=== PATIENT | female | born 1965 | race Caucasian/White ===

== ENCOUNTER 2020-02-17 20:00 | Outpatient (CLI) | payer OTHER, SELFPAY | END 2020-02-17 20:01 | disposition home or self-care (01) | LOC: SLEEP 02-18 08:32 | PROVIDERS: Family Provider Family Medicine; PCP Nurse Practitioner Family; Visit Provider Family Medicine | DX: G47.33 Obstructive sleep apnea (adult) (pediatric) (principal) | CPT/HCPCS: 95810 ==

== ENCOUNTER 2020-03-17 14:21 | Outpatient (CLI) | payer OTHER, SELFPAY ==
--- NOTE | 2020-03-17 14:40 | XR_ITS ---
WS: [id number] SCREENING DEXA SCAN [employer] CLINICAL INFORMATION: POST MENOPAUSAL COMPARISON: None. FINDINGS: The L1-L4 bone mineral density measures 1.160 g/cm2. This corresponds to a T score score of -0.2 and Z score of -0.7. Left femoral neck bone mineral density measures 1.122 g/cm2. This corresponds to a T score of 0.9 and Z score of 0.6. Right femoral neck bone mineral density measures 1.090 g/cm2. This corresponds to a T score 0.6of and Z score of 0.4. Mean femoral neck bone mineral density measures 1.106 g/cm2. This corresponds to a T score of 0.8 and Z score of 0.5. XR/XR DEXA axial skeleton* [id number] IMPRESSION: Normal bone mineralization. Patient's FRAX calculated 10 year probability for major osteoporotic fracture i s 5.1 % and osteoporotic hip fracture is 0.4%.
--- NOTE | 2020-03-17 15:10 | MM_ITS ---
WS: [id number] SCREENING DIGITAL MAMMOGRAM WITH CAD HISTORY: SCREEN COMPARISON: 01/13/2015 and 12/30/2014 Bilateral CC and MLO views submitted. Computer aided detection analyzed. Breast composition: There are scattered areas of fibroglandular density. No suspicious masses, microc alcifications or architectural distortion. MM/[place] [id number] IMPRESSION: BI-RADS: 1-Negative FOLLOW UP: 1 Year Follow-up
== END 2020-03-17 14:22 | disposition home or self-care (01) ==
PROVIDERS: PCP Nurse Practitioner Family; Visit Provider Nurse Practitioner Family
DX: Z78.0 Asymptomatic menopausal state (principal); Z12.31 Encounter for screening mammogram for malignant neoplasm of breast
CPT/HCPCS: 77067; 77080

== ENCOUNTER 2020-03-29 20:00 | Outpatient (CLI) | payer OTHER, SELFPAY | END 2020-03-29 20:01 | disposition home or self-care (01) | LOC: SLEEP 03-30 09:08 | PROVIDERS: PCP Nurse Practitioner Family; Visit Provider Nurse Practitioner Family | DX: G47.33 Obstructive sleep apnea (adult) (pediatric) (principal) | CPT/HCPCS: 95811 ==

== ENCOUNTER 2020-06-10 12:48 | Outpatient (CLI) | payer OTHER, SELFPAY ==
--- NOTE | 2020-06-10 12:58 | USCV_ITS ---
Maura Arana Age: 55 Gender: F : 1965 Exam Date: 06/10/2020 13:07 Ordering Phys: Merissa Foster CALCINER OPERATOR Technologist: Dunia Phan [place] [facility] [place]: PAIN IN LT KNEE TO LT HIP HISTORY: Two weeks of severe pain from lt hip to lt knee. PROCEDURES: Venous duplex imaging was performed in only the left lower extremity. The following venous structures were evaluated: common femoral vein, profunda vein, proximal portion of the greater saphenous vein, superficial femoral vein, and the popliteal vein. In addition, the posterior tibial and peroneal trunk were evaluated. Serial compression, augmentation maneuvers, and spectral Doppler flow evaluation were performed. FINDINGS: Normal 2-D Doppler and augmentation and compressibility throughout the lower extremity venous structures. Additional imaging through the proximal calf veins also reveals no thrombus. Limited evaluation of the greater saphenous vein is patent with no thrombus.. CONCLUSIONS No DVT left lower extremity. Dr. Lisette Gross DO (Electronically Signed) Final Date: 10 June 2020 14:38 S
== END 2020-06-10 12:49 | disposition home or self-care (01) ==
LOC: RAD 12:57
PROVIDERS: PCP Nurse Practitioner Family; Visit Provider Nurse Practitioner Family
DX: M79.605 Pain in left leg (principal)
CPT/HCPCS: 93971

== ENCOUNTER 2020-08-03 14:55 | Outpatient (CLI) | payer OTHER, SELFPAY ==
--- NOTE | 2020-08-03 14:58 | MR_ITS ---
WS: [id number] MRI LEFT KNEE HISTORY: LEFT KNEE JOINT PAIN COMPARISON: Knee radiograph 07/12/2020 Anterior cruciate ligament: Intact. Posterior cruciate ligament: Intact. Medial collateral ligament: Intact. Posterior lateral corner structures: Intact. Medial menisci: Intact. Normal signal, size and shape. Lateral meniscus: Intact. Normal signal, size and shape. Extensor mechanism: Distal quadriceps tendon and patellar tendons are intact. Fluid and soft tissue: Very small amount of fluid in the suprapatellar joint bursa. No Sarah's cyst. Osseous and articular structures: Patellofemoral compartment: Normal. Medial compartment: Mild narrowing of the medial compartment. Small fissures in the cartilage but no full-thickness defects. No marrow edema. Lateral compartment: Very mild narrowing of the joint without marrow edema. There is a full-thickness cartilage defect in the posterior lateral femoral condyle cartilage. Defect measures 6.7 mm. MR/MR knee LT wo con* [id number] IMPRESSION: 1. No meniscal tear. 2. Very small suprapatellar joint effusion. 3. 6.7 mm cartilage defect in the posterior lateral femoral condyle. 4. Very mild narrowing of the medial compartment with fissuring of the cartila ge.
== END 2020-08-03 14:56 | disposition home or self-care (01) ==
LOC: RADSHAW 14:57
PROVIDERS: PCP Nurse Practitioner Family; Visit Provider Nurse Practitioner Family
DX: M25.462 Effusion, left knee (principal)
CPT/HCPCS: 73721

== ENCOUNTER 2022-04-27 08:57 | Outpatient (CLI) | payer OTHER, SELFPAY ==
--- NOTE | 2022-04-27 | CT_ITS ---
WS: [id number] CT NECK TECHNIQUE: Contrast-enhanced CT of the neck with coronal and sagittal reformatted images. CLINICAL INFORMATION: ENLARGED LYMPH NODES COMPARISON: Ultrasound January 17, 2022 DLP: 310.[address] scans at [facility] use at least one of these dose optimization techniques: automated e xposure control; mA and/or kV adjustment per patient size (includes targeted exams where dose is matc hed to clinical indication); or iterative reconstruction. FINDINGS: Palpable marker in the RIGHT lower neck. No evidence of underlying mass or lesion. Previously describ ed suspected lymph node not visualized today. Tiny amount of underlying induration in this area. A fe w prominent cervical lymph nodes not pathologically enlarged. Slightly enlarged partially visualized subpectoral and upper axillary lymph nodes. Parotid glands are normal. Normal submandibular glands. Tonsillar calcifications. Normal parapharynge al fat. No cervical lymphadenopathy. Lung apices are well aerated. Paranasal sinuses are well aerated . Mild mucosal thickening RIGHT mastoid air cells. LEFT mastoid air cells well aerated. Normal senior billing consultant ior nasopharynx. Normal parapharyngeal fat. No evidence of supraglottic or glottic mass. Normal subgl ottic larynx. Straightening of the normal cervical lordosis with moderate spondylitic changes. CT/CT neck w con* [id number] IMPRESSION: 1. Palpable marker in the RIGHT lower neck. No evidence of underlying subcutan eous cystic or solid mass or lymph node. Tiny amount of induration in this area . No underlying lymph node in this area. 2. Partially visualized numerous prominent lymph nodes sub pectoral and upper axillary. Partially evaluated enlarged LEFT subpectoral lymph node measuring 16 mm. This could be further evaluated with contrast-enhanced chest CT. 3. A few prominent cervical lymph nodes not pathologically enlarged. 4. Normal salivary glands. 5. No evidence of supraglottic or glottic mass. 6. Mucosal thickening RIGHT mastoid air cells. 7. No other suspicious findings.
[2022-04-27] MEDS: iohexol 350 mg/mL 100 mL Btl IV (09:49)
== END 2022-04-27 08:58 | disposition home or self-care (01) ==
LOC: RAD 08:57
PROVIDERS: PCP Nurse Practitioner Family; Visit Provider Nurse Practitioner Family
DX: R59.0 Localized enlarged lymph nodes (principal)
CPT/HCPCS: 70491

== ENCOUNTER 2022-07-10 14:51 | Outpatient (CLI) | payer OTHER, SELFPAY ==
--- NOTE | 2022-07-10 15:18 | CT_ITS ---
WS: [id number] CT CHEST WITH INTRAVENOUS CONTRAST HISTORY: GENERALIZED ENLARGED LYMPH NODES TECHNIQUE: Contiguous 5 mm axial imaging performed on the thorax. Coronal and sagittal reformats are submitted. All CT scans at [facility] use at least one of these dose optimization techniques: automated exposure control; mA and/or kV adjustment per patient size (includes targeted exams where dose is matched to clinical indication); or iterative reconstruction. CONTRAST: Omnipaque 350; 95 mL IV. DLP: 639.01 mGy.cm COMPARISON: Prior ultrasound 01/17/2022. Neck CT 04/27/2022 Lungs and central airway: Normal. Pleura: Normal. No pleural effusion. Heart and pericardium: Mild cardiomegaly. No effusion. Mediastinum and costa: Small benign-appearing axillary, mediastinal and hilar lymph nodes. Normal fatt y costa remain. Vessels: Mild atherosclerosis aorta. Normal size pulmonary artery. Chest wall and lower neck: No soft tissue masses. Upper abdomen: Nonobstructing 11 mm RIGHT renal calcification. No adrenal mass. The visualized liver is negative. Osseous structures: Mild diffuse thoracic spondylitic changes. No bone destruction. CT/CT chest w con* [id number] IMPRESSION: 1. No axillary, mediastinal or hilar pathologically enlarged lymph nodes. 2. No pulmonary mass or nodule. 3. Mild atherosclerosis aorta. 4. Mild cardiomegaly.
[2022-07-10] MEDS: iohexol 350 mg/mL 500 mL Btl (per mL) IV (15:38)
== END 2022-07-10 14:52 | disposition home or self-care (01) ==
LOC: RAD 14:53
PROVIDERS: PCP Nurse Practitioner Family; Visit Provider Nurse Practitioner Family
DX: R59.1 Generalized enlarged lymph nodes (principal); I70.0 Atherosclerosis of aorta; I51.7 Cardiomegaly
CPT/HCPCS: 71260; Q9967

== ENCOUNTER 2022-11-18 17:03 | Emergency (ER) | payer OTHER, SELFPAY ==
[2022-11-18] VITALS (7 sets, daily range): BP systolic 120–173; BP diastolic 59–89; PULSE 63–78; RESP 18–21; TEMP 36.9; O2SAT 93–98; BMI 51.5
--- NOTE | 2022-11-18 17:18 | ED_ITS ---
HPI - Abdominal Pain General: Chief Complaint: Abdominal Pain Stated Complaint: sharp pain under left breast upon movement Time Seen by Provider: 11/18/22 17:18 History of Present Illness: Patient presents to the ER with complaints of left upper quadrant abdominal pain. This pain started in the middle of last night. Patient has had an episode of this before approximately 2 years ago. MD elicited complaint: abdominal pain Pertinent past history: none Onset (ago): day(s) (Last night) Pain Consistency: constant Location: LUQ Severity: severe Quality: stabbing Radiation: none Migration to: no migration Exacerbating factors: movement Relieving factors: rest Associated Symptoms: Reports no associated symptoms; Denies chills, diarrhea, dysuria, fever(s), nausea and vomiting Review of Systems General: Reports: 10 or more systems reviewed and unremarkable except in HPI and below Const: Denies: fever(s), chills or body aches Eyes: Denies: change in vision or photophobia ENMT: Denies: throat pain or odynophagia Card: Denies: chest pain, palpitations or irregular heart rhythm Resp: Denies: dyspnea, productive cough or non-productive cough GI: Reports: abdominal pain; Denies: nausea, vomiting or diarrhea : Denies: flank pain, difficulty voiding or dysuria Musc: Denies: neck pain, back pain or extremity pain Skin/Breast: Denies: rash, pruritus or erythema PFSH ED PFSH: Social History Smoking and tobacco status: never smoked Alcohol intake: never Substance/Drug Use: never Physical Exam Const: COMMON NORMALS: no acute distress, average body habitus, patient oriented x3, no limitations, healthy appearing, alert and well nourished HENMT: COMMON NORMALS: normocephalic, atraumatic, hearing grossly normal bilaterally, external ears normal, Normal external nose present and moist oral mucous membranes HEAD & SCALP: normocephalic and atraumatic NOSE: Normal external nose present EXTERNAL EAR: Yes external ears normal Eye: COMMON NORMALS: Equal, round and reactive pupils present, EOMs intact bilaterally, conjunctivae normal and no scleral icterus CONJUNCTIVA: Yes conjunctivae normal PUPIL: Yes Equal, round and reactive pupils present Neck/C-Spine: COMMON NORMALS: full ROM, no lymphadenopathy, supple, no meningeal signs, no JVD and Thyroid normal THYROID: Thyroid normal Lymph: LYMPHATIC: no lymphadenopathy noted Chest: COMMONS NORMALS: normal inspection of the chest and normal palpation of entire chest wall Resp: COMMON NORMALS: normal respiratory effort, No retractions, No use of accessory muscles and clear to auscultation bilaterally AUSCULTATION: clear to auscultation bilaterally Cardio: COMMON NORMALS: no JVD, regular rate, regular rhythm, S2 normal heart sound present, No gallops present (Cardio), No clicks present (Cardio) and No murmurs present (Cardio) RATE: regular rate RHYTHM: regular rhythm HEART SOUNDS: S2 normal heart sound present GI: COMMON NORMALS: Normal to inspection, nondistended, normoactive bowel sounds present, Soft to palpation, No hepatosplenomegaly present and no masses PALPATION: Yes Soft to palpation, Yes Tenderness to palpation present (GI) Details: LUQ and Yes No hepatosplenomegaly present : COMMON NORMALS: Yes no CVA tenderness BLADDER/KIDNEY EXAM: Yes no CVA tenderness Back/Pelvis: COMMON NORMALS: no CVA tenderness Neuro: COMMON NORMALS: patient oriented x3 SENSORIUM/ORIENTATION: Yes alert MENINGEAL SIGNS: Yes no meningeal signs Course Vital Signs: Vital signs: Vital Signs Temperature 98.4 F 11/18/22 17:10 Pulse Rate 66 11/18/22 19:00 Respiratory Rate 19 H 11/18/22 19:00 Blood Pressure 173/89 11/18/22 18:30 Pulse Oximetry 93 11/18/22 19:00 Oxygen Delivery Me thod Room Air 11/18/22 18:16 MDM - Abdominal Pain Medical Decision Making Patient presents to the ER with left upper quadrant abdominal pain since last night. Patient states his pain is sharp stabbing and constant. Physical exam was performed lab work and imaging was reviewed which showed jejunal bowel wall thickening consistent with jejunitis. Patient was given Cipro and Flagyl here in the ER as her initial dose and will be sent home with prescriptions for both. Patient is to follow-up with her PCP in approximately 7 to 10 days. Differential Diagnosis Likely abdominal pain; Unlikely acute appendicitis, calculus of kidney, constipation, diverticulitis, endometriosis, gastroenteritis, pancreatitis or small bowel obstruction Medical Records I reviewed the patient's medical records. Lab Data I reviewed the patient's lab results. 11/18/22 17:34 11/18/22 17:34 Labs/Radiology: Radiology Impressions Abdomen/Pelvis CT 11/18/22 17:25 IMPRESSION: Jejunal bowel wall thickening consistent with jejunitis. Laboratory Results WBC 8.1 10^3/uL (4.0-10.0) 11/18/22 17:34 RBC 5.09 10^6/uL (4.1-5.3) 11/18/22 17:34 Hgb 14.1 g/dL (11.5-15.3) 11/18/22 17:34 Hct 43.0 % (37.0-47.0) 11/18/22 17:34 MCV 84.5 fl (81-99) 11/18/22 17:34 MCH 27.7 pg (28.0-34.0) L 11/18/22 17:34 MCHC 32.8 g/dL (30.0-36.0) 11/18/22 17:34 RDW 13.2 % (12.1-15.1) 11/18/22 17:34 Plt Count 329 10^3/cmm (130-400) 11/18/22 17:34 MPV 9.8 fL (7.4-10.4) 11/18/22 17:34 Neut % (Auto) 63.1 % 11/18/22 17:34 Lymph % (Auto) 22.5 % 11/18/22 17:34 Wilkinson % (Auto) 6.8 % 11/18/22 17:34 Eos % (Auto) 6.3 % 11/18/22 17:34 Baso % (Auto) 0.6 % 11/18/22 17:34 Neut # (Auto) 5.10 10^3/uL (1.8-7.7) 11/18/22 17:34 Lymph # (Auto) 1.8 10^3/uL (0.8-4.8) 11/18/22 17:34 Wilkinson # (Auto) 0.6 10^3/uL (0.2-0.9) 11/18/22 17:34 Eos # (Auto) 0.5 10^3/uL (0.0-0.8) 11/18/22 17:34 Baso # (Auto) 0.1 10^3/uL (0.0-0.1) 11/18/22 17:34 Nucleated RBC % (auto) 0 % 11/18/22 17:34 Nucleated RBCs # 0.0 /100WBC 11/18/22 17:34 Sodium 140 mmol/L (136-145) 11/18/22 17:34 Potassium 3.5 mmol/L (3.5-5.1) 11/18/22 17:34 Chloride 98 mmol/L (98-107) 11/18/22 17:34 Carbon Dioxide 30 mmol/L (22-29) H 11/18/22 17:34 Anion Gap 15.5 (5-19) 11/18/22 17:34 BUN 9 mg/dL (6-20) 11/18/22 17:34 Creatinine 0.4 mg/dL (0.5-0.9) L 11/18/22 17:34 GFR Calculation 165.7 mL/min (90-130) H 11/18/22 17:34 Glucose 180 mg/dL (65-115) H 11/18/22 17:34 Calculated Osmolality 293 mOsm/kg (285-295) 11/18/22 17:34 Calcium 9.0 mg/dL (8.5-10.5) 11/18/22 17:34 Total Bilirubin 0.7 mg/dL (0.15-1.2) 11/18/22 17:34 AST 28 U/L (0-32) 11/18/22 17:34 ALT 39 U/L (0-33) H 11/18/22 17:34 Alkaline Phosphatase 104 U/L (35-105) 11/18/22 17:34 Total Protein 7.7 g/dL (6.6-8.7) 11/18/22 17:34 Albumin 4.3 g/dL (3.5-5.2) 11/18/22 17:34 Globulin 3.4 g/dL (1.3-4.6) 11/18/22 17:34 Lipase 26 U/L (13-60) 11/18/22 17:34 Urine Color Yellow (Yellow) 11/18/22 18:38 Urine Appearance Clear (CLEAR) 11/18/22 18:38 Urine pH 5 (5-7) 11/18/22 18:38 Ur Specific [place] 1.015 (1.005-1.030) 11/18/22 18:38 Urine Protein Neg (Negative) 11/18/22 18:38 Urine Glucose (UA) Norm (Normal) 11/18/22 18:38 Urine Ketones Negative (Negative) 11/18/22 18:38 Urine Blood Neg (Negative) 11/18/22 18:38 Urine Nitrate Negative (Negative) 11/18/22 18:38 Urine Bilirubin Neg (Negative) 11/18/22 18:38 Urine Urobilinogen Norm mg/dL (Negative) 11/18/22 18:38 Ur Leukocyte Esterase Negative (Negative) 11/18/22 18:38 Discharge Plan Discharge Patient Disposition: Home Clinical Impression: Jejunitis Abdominal pain Qualifiers: Abdominal location: left upper quadrant Qualified Code(s): R10.12 - Left upper quadrant pain Condition: Stable Prescriptions: New ciprofloxacin HCl 500 mg tablet 500 mg PO BID Qty: 20 0RF metronidazole 500 mg tablet 500 mg PO Q8H Qty: 30 0RF No Action amlodipine [Norvasc] 2.5 mg tablet 2.5 mg PO DAILY losartan-hydrochlorothiazide 100-25 mg tablet 1 tab PO DAILY metoprolol tartrate 25 mg tablet 25 mg PO DAILY levothyroxine 88 mcg capsule 88 mcg PO DAILY metformin 500 mg tablet 500 mg PO DAILY cholecalciferol (vitamin D3) 125 mcg (5,000 unit) capsule 125 mcg PO DAILY Discharge Orders: Discharge ED (Routine); Ordered 11/18/22 Ordered By: Fabio Simon Referrals: Merissa Foster FNP [Primary Care Provider] - 1 week Patient Instructions: Abdominal Pain (ED) Coding Level of Care Code ED Salesperson Burial Needs for Charles Mcneill
--- NOTE | 2022-11-18 17:25 | CTR_ITS ---
PROCEDURE INFORMATION: Exam: CT Abdomen And Pelvis With Contrast Exam date and time: 11/18/2022 5:53 PM Age: 57 years old Clinical indication: Abdominal pain; Localized; Left upper quadrant (luq); Prior surgery; Surgery date: 6+ months; Surgery type: Tubal; Additional info: Luq abd pain TECHNIQUE: Imaging protocol: Computed tomography of the abdomen and pelvis with contrast. Radiation optimization: All CT scans at this facility use at least one of these dose optimization techniques: automated exposure control; mA and/or kV adjustment per patient size (includes targeted exams where dose is matched to clinical indication); or iterative reconstruction. Contrast material: OMNI 350; Contrast volume: 100 ml; Contrast route: INTRAVENOUS (IV); REPORTING DATA: Count of CT and Cardiac NM exams in prior 12 months: This patient has received 2 known CTs and 0 known cardiac nuclear medicine studies in the 12 months prior to the current study. COMPARISON: CT chest w con* [id number] 07/10/2022 3:31 PM RADIATION DOSE METRICS: Total DLP (mGy-cm): 1111.6 FINDINGS: Liver: Normal. No mass. Gallbladder and bile ducts: Normal. No calcified stones. No ductal dilation. Pancreas: Normal. No ductal dilation. Spleen: Normal. No splenomegaly. Adrenal glands: Normal. No mass. Kidneys and ureters: Normal. No hydronephrosis. Stomach and bowel: Moderate diverticulosis. Jejunal bowel wall thickening consistent with jejunitis. Appendix: No evidence of appendicitis. Intraperitoneal space: Unremarkable. No free air. No significant fluid collection. Vasculature: Calcification of the abdominal aorta and/or iliac arteries consistent with atherosclerotic vessel disease. Lymph nodes: Unremarkable. No enlarged lymph nodes. Urinary bladder: Unremarkable as visualized. Reproductive: Unremarkable as visualized. Bones/joints: Unremarkable. No acute fracture. Soft tissues: Unremarkable. CT/CT abdomen pelvis w con* [id number] IMPRESSION: Jejunal bowel wall thickening consistent with jejunitis.
[2022-11-18 17:48] LABS: Basophils # 0.1 10^3/uL (0.0-0.1); Basophils % 0.6 %; Eosinophils # 0.5 10^3/uL (0.0-0.8); Eosinophils % 6.3 %; Hemoglobin 14.1 g/dL (11.5-15.3); Lymphocytes # 1.8 10^3/uL (0.8-4.8); Lymphocytes % 22.5 %; Mean Corpuscular HGB Conc 32.8 g/dL (30.0-36.0); Mean Corpuscular Hemoglobin 27.7 pg (28.0-34.0); Mean Corpuscular Volume 84.5 fl (81-99); Mean Platelet Volume 9.8 fL (7.4-10.4); Monocytes # 0.6 10^3/uL (0.2-0.9); Monocytes % 6.8 %; Neutrophils % 63.1 %; Nucleated Red Blood Cells % 0 %; Platelet Count 329 10^3/cmm (130-400); Red Blood Count 5.09 10^6/uL (4.1-5.3); Red Cell Distribution Width 13.2 % (12.1-15.1); White Blood Count 8.1 10^3/uL (4.0-10.0)
[2022-11-18] MEDS: iohexol 350 mg/mL 500 mL Btl (per mL) IV (17:58)
[2022-11-18 18:00] LABS: Alanine Aminotransferase 39 U/L (0-33); Albumin Level 4.3 g/dL (3.5-5.2); Alkaline Phosphatase 104 U/L (35-105); Anion Gap 15.5 (5-19); Aspartate Amino Transferase 28 U/L (0-32); Blood Urea Nitrogen 9 mg/dL (6-20); Carbon Dioxide 30 mmol/L (22-29); Chloride 98 mmol/L (98-107); Globulin 3.4 g/dL (1.3-4.6); Glomerular Filtration Rate 165.7 mL/min (90-130); Glucose 180 mg/dL (65-115); Lipase 26 U/L (13-60); Osmolality Calculated 293 mOsm/kg (285-295); Potassium 3.5 mmol/L (3.5-5.1); Sodium 140 mmol/L (136-145); Total Bilirubin 0.7 mg/dL (0.15-1.2); Total Protein 7.7 g/dL (6.6-8.7)
[2022-11-18] MEDS: ketorolac 30 mg/mL INJ IVP (18:10)
[2022-11-18 18:42] LABS: Add Urine Microscopic? NO; Charge for UA Resulting for Rev
[2022-11-18 19:00] LABS: Bilirubin Urine Neg (Negative); Blood Urine Neg (Negative); Glucose Urine UA Norm (Normal); Ketones Urine Negative (Negative); Leukocyte Esterase Urine Negative (Negative); Nitrate Urine Negative (Negative); Protein Urine Neg (Negative); Specific Gravity, Urine 1.015 (1.005-1.030); Urine Appearance Clear (CLEAR); Urine Color Yellow (Yellow); Urobilinogen Urine Norm (Negative); pH Urine 5 (5-7)
[2022-11-18] MEDS: ciprofloxacin 500 mg Tablet PO (19:43)
[2022-11-18] MEDS: metroNIDAZOLE 500 MG Tablet PO (19:43)
== END 2022-11-18 19:53 | disposition home or self-care (01) ==
PROVIDERS: Emergency Provider Emergency Medicine; PCP Nurse Practitioner Family
DX: K52.9 Noninfective gastroenteritis and colitis, unspecified (principal); R10.12 Left upper quadrant pain; Z79.84 Long term (current) use of oral hypoglycemic drugs
CPT/HCPCS: 74177; 80053; 81003; 83690; 85025; 96374; 99285; J1885; Q9967

== ENCOUNTER 2023-06-06 14:20 | Outpatient (CLI) | payer OTHER, SELFPAY ==
--- NOTE | 2023-06-06 14:26 | MM_ITS ---
WS: [id number] BILATERAL SCREENING DIGITAL TOMOSYNTHESIS MAMMOGRAM WITH CAD HISTORY: SCREENING COMPARISON: 03/17/2020 and 01/13/2015 Bilateral CC and MLO views with tomosynthesis and synthetic mammography submitted. Computer aided det ection analyzed. Breast composition: There are scattered areas of fibroglandular density. No suspicious masses, microc alcifications or architectural distortion. IMPRESSION: MM/[place] [id number] BI-RADS: 1-Negative FOLLOW UP: 1 Year Follow-up
== END 2023-06-06 14:21 | disposition home or self-care (01) ==
LOC: RAD 14:20
PROVIDERS: PCP Nurse Practitioner Family; Visit Provider Nurse Practitioner Family
DX: Z12.31 Encounter for screening mammogram for malignant neoplasm of breast (principal)
CPT/HCPCS: 77063; 77067

== ENCOUNTER 2023-07-21 19:16 | Emergency (ER) | payer OTHER, SELFPAY ==
[2023-07-21 19:20] VITALS: BP 174/81; PULSE 91; RESP 18; TEMP 36.7; O2SAT 99; BMI 48.6
--- NOTE | 2023-07-21 19:20 | W.ED.GENADLT ---
HPI - General Adult General: Chief complaint: Skin/Abscess/Foreign Body Stated complaint: full body rash bg over 500 Time Seen by Provider: 07/21/23 19:19 History of Present Illness: 58-year-old female comes in today for complaints of a rash that has been persistent for the last 2 to 3 weeks. Patient has been first treated with steroids and the rash seemed to worsen, patient then had an increase in the dose of steroids and started on cephalexin. Patient reports no improvement of symptoms and feels the rash is worsened even more. Associated symptoms: Reports rash Review of Systems Skin/Breast: Reports: rash PFSH ED PFSH: Social History Smoking and tobacco/nicotine status: never used tobacco/nicotine Alcohol intake: never Substance/Drug Use: never Physical Exam Const: COMMON NORMALS: alert HENMT: COMMON NORMALS: normocephalic HEAD & SCALP: normocephalic Neck/C-Spine: COMMON NORMALS: full ROM Resp: COMMON NORMALS: normal respiratory effort and clear to auscultation bilaterally AUSCULTATION: clear to auscultation bilaterally Cardio: COMMON NORMALS: regular rate and regular rhythm RATE: regular rate RHYTHM: regular rhythm GI: COMMON NORMALS: non-tender Extremity: COMMON NORMALS: normal to inspection Neuro: SENSORIUM/ORIENTATION: Yes alert Skin: NARRATIVE SKIN EXAM: Patient has crusting to the scalp running down the right facial area. RASHES: rashes noted (Confluent erythematous rash, crusted lesions to the hands and feet bilatera) Course Vital Signs: Vital signs: Vital Signs Temperature 98.0 F 07/21/23 21:10 Pulse Rate 74 07/21/23 21:10 Respiratory Rate 18 07/21/23 21:10 Blood Pressure 182/81 07/21/23 21:10 Pulse Oximetry 97 07/21/23 21:10 Oxygen Delivery Me thod Room Air 07/21/23 19:20 MDM - General Adult Medical Decision Making Patient presents with a rash that is worsening over the last 2 to 3 weeks. Patient was first started on steroids which seemed to make the rash worse followed up with primary care and they added cephalexin and then increase the dose of steroids. Since then patient has had increasing rash with erythema and crusting of the lesions. Differential diagnosis includes Bangladeshi scabies, adverse drug effect, allergic reaction. I believe the patient probably has Bangladeshi scabies. Recommend that she stop the steroids and we will treat her with ivermectin and permethrin cream. Patient does have an appointment to see dermatology tomorrow which she will go ahead and keep for further evaluation and consideration of differentials. Lab noted with a blood glucose of 342, normal anion gap, and potassium of 2.8. Patient was given 40 mill equivalents of potassium we continued on 10 mEq daily for the next 7 days. This was reviewed with patient and agreed to plan. Patient was also sent in a prescription for cough medicine due to complaints of a cough on discharge. Lab Data 07/21/23 20:17 07/21/23 20:17 Laboratory Results WBC 9.56 10^3/uL (3.29-11.43) 07/21/23 20:17 RBC 4.74 10^6/uL (3.85-5.65) 07/21/23 20:17 Hgb 13.40 g/dL (11.27-16.99) 07/21/23 20:17 Hct 39.6 % (36-47) 07/21/23 20:17 MCV 83.5 fl (85-98) L 07/21/23 20:17 MCH 28.3 pg (27-33) 07/21/23 20:17 MCHC 33.8 g/dL (30-55) 07/21/23 20:17 RDW 14.5 % (12.1-15.1) 07/21/23 20:17 Plt Count 407 10^3/cmm (157-399) H 07/21/23 20:17 MPV 9.4 fL (7.4-10.4) 07/21/23 20:17 Neut % (Auto) 72.2 % 07/21/23 20:17 Lymph % (Auto) 19.9 % 07/21/23 20:17 [place] % (Auto) 3.8 % 07/21/23 20:17 Eos % (Auto) 1.6 % 07/21/23 20:17 Baso % (Auto) 0.8 % 07/21/23 20:17 Neut # (Auto) 6.91 10^3/uL (1.8-7.7) 07/21/23 20:17 Lymph # (Auto) 1.9 10^3/uL (0.8-4.8) 07/21/23 20:17 [place] # (Auto) 0.4 10^3/uL (0.2-0.9) 07/21/23 20:17 Eos # (Auto) 0.2 10^3/uL (0.0-0.8) 07/21/23 20:17 Baso # (Auto) 0.1 10^3/uL (0.0-0.1) 07/21/23 20:17 Nucleated RBC % (auto) 0 % 07/21/23 20:17 Nucleated RBCs # 0.0 /100WBC 07/21/23 20:17 Sodium 140 mmol/L (136-145) 07/21/23 20:17 Potassium 2.8 mmol/L (3.5-5.1) L* 07/21/23 20:17 Chloride 96 mmol/L (98-107) L 07/21/23 20:17 Carbon Dioxide 30 mmol/L (22-29) H 07/21/23 20:17 Anion Gap 16.8 (5-19) 07/21/23 20:17 BUN 7 mg/dL (6-20) 07/21/23 20:17 Creatinine 0.6 mg/dL (0.5-0.9) 07/21/23 20:17 GFR Calculation 103.4 mL/min (90-130) 07/21/23 20:17 Glucose 342 mg/dL (65-115) H 07/21/23 20:17 POC Glucose 390 mg/dL (70-110) H 07/21/23 19:24 Calculated Osmolality 302 mOsm/kg (285-295) H 07/21/23 20:17 Calcium 8.1 mg/dL (8.5-10.5) L 07/21/23 20:17 Total Bilirubin 0.7 mg/dL (0.15-1.2) 07/21/23 20:17 AST 20 U/L (0-32) 07/21/23 20:17 ALT 26 U/L (0-33) 07/21/23 20:17 Alkaline Phosphatase 104 U/L (35-105) 07/21/23 20:17 Total Protein 7.3 g/dL (6.6-8.7) 07/21/23 20:17 Albumin 3.8 g/dL (3.5-5.2) 07/21/23 20:17 Globulin 3.5 g/dL (1.3-4.6) 07/21/23 20:17 Urine Color Light yellow (Yellow) 07/21/23 19:53 Urine Appearance Sl hazy (CLEAR) A 07/21/23 19:53 Urine pH 6.5 (5-7) 07/21/23 19:53 Ur Specific [place] 1.010 (1.005-1.030) 07/21/23 19:53 Urine Protein Neg (Negative) 07/21/23 19:53 Urine Glucose (UA) 4+ (Normal) H 07/21/23 19:53 Urine Ketones Negative (Negative) 07/21/23 19:53 Urine Blood Neg (Negative) 07/21/23 19:53 Urine Nitrate Negative (Negative) 07/21/23 19:53 Urine Bilirubin Neg (Negative) 07/21/23 19:53 Urine Urobilinogen 1 mg/dL (Negative) H 07/21/23 19:53 Ur Leukocyte Esterase Negative (Negative) 07/21/23 19:53 Urine RBC 0-4 /hpf (0-2) H 07/21/23 19:53 Urine WBC None /hpf (0-5) 07/21/23 19:53 Ur Squamous Epith Cells 0-4 /hpf (0-5) H 07/21/23 19:53 Amorphous Sediment Not Reportable 07/21/23 19:53 Urine Bacteria Trace /hpf (NONE) 07/21/23 19:53 Serum Ketones Negative (Negative) 07/21/23 20:17 No radiology studies performed this visit Discharge Plan Discharge Patient Disposition: Home Clinical Impression: Bangladeshi scabies, Hypokalemia Condition: Stable Prescriptions: New ivermectin 3 mg tablet 15 mg PO DAILY Qty: 25 0RF Rx Instructions: take on day 1,2,8,9 and 15 permethrin 5 % cream 1 applic topical Q14D Qty: 120 1RF Rx Instructions: apply second treatment after 7 days potassium chloride 10 mEq capsule, extended release 10 meq PO DAILY Qty: 7 0RF promethazine-DM 6.25-15 mg/5 mL syrup 5 ml PO Q6H PRN (Reason: cough) Qty: 118 0RF No Action amlodipine [Norvasc] 2.5 mg tablet 2.5 mg PO DAILY losartan-hydrochlorothiazide 100-25 mg tablet 1 tab PO DAILY metoprolol tartrate 25 mg tablet 25 mg PO DAILY levothyroxine 88 mcg capsule 88 mcg PO DAILY metformin 500 mg tablet 500 mg PO DAILY cholecalciferol (vitamin D3) 125 mcg (5,000 unit) capsule 125 mcg PO DAILY ciprofloxacin HCl 500 mg tablet 500 mg PO BID Qty: 20 0RF metronidazole 500 mg tablet 500 mg PO Q8H Qty: 30 0RF Discharge Orders: Discharge ED (Routine); Ordered 07/21/23 Ordered By: Tremayne Manjarrez Referrals: Merissa Foster FNP [Primary Care Provider] - Discharge Diet: Usual diet Discharge Activity: Increase activity as tolerated Patient Instructions: Scabies (ED) Activity Restrictions/Additional Instructions: Take ivermectin tablets, 5 tablets, on day 1 and 2, repeat on days 8 and 9, then on day 15. Take tablets with food. Use permethrin cream apply head to toe on day 1 and then repeat on day 7. Take potassium daily for the next 7 days to replace lost potassium from steroid use. Drink plenty of water and fluids. Stop steroids. You can use the antibiotic to rule out secondary infection. Stand Alone Forms: Work/School Release Coding Level of Care Code ED Wire Stitcher for Charles Mcneill
[2023-07-21 19:29] LABS: Glucose Point of Care 390 mg/dL (70-110)
[2023-07-21 19:42] VITALS: BP 174/87; PULSE 84; RESP 18; O2SAT 97
[2023-07-21 20:08] LABS: Protein Urine Neg (Negative); Urine Appearance SL Hazy (CLEAR); Urine Color Light yellow (Yellow); pH Urine 6.5 (5-7)
[2023-07-21 20:09] LABS: Add Urine Microscopic? YES; Bilirubin Urine Neg (Negative); Blood Urine Neg (Negative); Glucose Urine UA 4+ (Normal); Ketones Urine Negative (Negative); Leukocyte Esterase Urine Negative (Negative); Nitrate Urine Negative (Negative); Urobilinogen Urine 1 mg/dL (Negative)
[2023-07-21 20:15] LABS: Add Urine Culture? No; Bacteria Urine TRACE /hpf; RBC Urine 0-4 /hpf (0-2); Squamous Epithelial Cell Urine 0-4 /hpf (0-5)
[2023-07-21 20:28] LABS: Basophils # 0.1 10^3/uL (0.0-0.1); Basophils % 0.8 %; Eosinophils # 0.2 10^3/uL (0.0-0.8); Eosinophils % 1.6 %; Hematocrit 39.6 % (36-47); Lymphocytes # 1.9 10^3/uL (0.8-4.8); Lymphocytes % 19.9 %; Mean Corpuscular HGB Conc 33.8 g/dL (30-55); Mean Corpuscular Hemoglobin 28.3 pg (27-33); Mean Corpuscular Volume 83.5 fl (85-98); Mean Platelet Volume 9.4 fL (7.4-10.4); Monocytes # 0.4 10^3/uL (0.2-0.9); Monocytes % 3.8 %; Neutrophils # 6.91 10^3/uL (1.8-7.7); Neutrophils % 72.2 %; Nucleated Red Blood Cells % 0 %; Platelet Count 407 10^3/cmm (157-399); Red Blood Count 4.74 10^6/uL (3.85-5.65); Red Cell Distribution Width 14.5 % (12.1-15.1); White Blood Count 9.56 10^3/uL (3.29-11.43)
[2023-07-21 20:36] VITALS: BP 182/81; PULSE 74; RESP 18; O2SAT 97
[2023-07-21 20:40] LABS: Ketone (Acetest) Serum Negative (Negative)
[2023-07-21 20:46] LABS: Alanine Aminotransferase 26 U/L (0-33); Albumin Level 3.8 g/dL (3.5-5.2); Alkaline Phosphatase 104 U/L (35-105); Anion Gap 16.8 (5-19); Aspartate Amino Transferase 20 U/L (0-32); Blood Urea Nitrogen 7 mg/dL (6-20); Calcium 8.1 mg/dL (8.5-10.5); Carbon Dioxide 30 mmol/L (22-29); Chloride 96 mmol/L (98-107); Globulin 3.5 g/dL (1.3-4.6); Glomerular Filtration Rate 103.4 mL/min (90-130); Glucose 342 mg/dL (65-115); Osmolality Calculated 302 mOsm/kg (285-295); Sodium 140 mmol/L (136-145); Total Bilirubin 0.7 mg/dL (0.15-1.2); Total Protein 7.3 g/dL (6.6-8.7)
[2023-07-21 20:50] LABS: Potassium 2.8 mmol/L (3.5-5.1)
[2023-07-21] MEDS: potassium chloride ER 20 mEq Tablet 40 MEQ PO (21:00)
[2023-07-21 21:10] VITALS: BP 182/81; PULSE 74; RESP 18; TEMP 36.7; O2SAT 97
== END 2023-07-21 21:11 | disposition home or self-care (01) ==
PROVIDERS: Emergency Provider Nurse Practitioner Family; PCP Nurse Practitioner Family
DX: B86 Scabies (principal); E87.6 Hypokalemia; Z79.84 Long term (current) use of oral hypoglycemic drugs
CPT/HCPCS: 36415; 36416; 80053; 81001; 82009; 82962; 85025; 99283

== ENCOUNTER 2023-07-24 11:36 | Emergency (ER) | payer OTHER, SELFPAY ==
[2023-07-24] VITALS (8 sets, daily range): BP systolic 123; BP diastolic 76–92; PULSE 86–97; RESP 16–23; TEMP 36.7; O2SAT 94–100; BMI 48.6
--- NOTE | 2023-07-24 13:13 | ED_ITS ---
HPI - General Adult 2 General: Chief complaint: General Medical Stated complaint: dr. barrett, fever, rash, cough Time Seen by Provider: 07/24/23 13:12 History of Present Illness: 58-year-old female comes in today with i ncreased cough and chest congestion. Patient was seen the other day for a rash which was erythematous and areas of crusting to the wrist hands and face. Patient at that time was diagnosed with Burmese scabies. Since being taken off the steroids patient was continued on cephalexin. Since then patient's cough worsened and the patient was to see dermatology as but was referred to the ER instead due to the increased coughing. Patient has a history of COPD and diabetes mellitus type 2. Patient reports that she used the permethrin lotion x 1 that has yet to take in the ivermectin. Patient did stop steroids and continue the cephalexin. Review of Systems 2 General: Reports: 10 or more systems reviewed and unremarkable except in HPI and below Skin/Breast: Reports: pruritus and erythema PFSH ED 2 PFSH: Social History Smoking and tobacco/nicotine status: never used tobacco/nicotine Alcohol intake: never Substance/Drug Use: never Physical Exam 2 Const: COMMON NORMALS: alert HENMT: MOUTH: Normal oral and palatal mucosa present Neck/C-Spine: COMMON NORMALS: full ROM Resp: COMMON NORMALS: normal respiratory effort and clear to auscultation bilaterally AUSCULTATION: clear to auscultation bilaterally Cardio: COMMON NORMALS: regular rate and regular rhythm RATE: regular rate RHYTHM: regular rhythm GI: COMMON NORMALS: Soft to palpation PALPATION: Yes Soft to palpation Extremity: COMMON NORMALS: normal to inspection Neuro: SENSORIUM/ORIENTATION: Yes alert Skin: NARRATIVE SKIN EXAM: Confluent erythematous rash. Patient has crusting to the right side of the face and right hand. Some improvement of the crusting is noted from prior exam at last ER visit. Patient has more abrasions to her skin from scratching. Course 2 Vital Signs: Vital signs: Vital Signs Temperature 98.0 F 07/24/23 11:42 Pulse Rate 86 07/24/23 14:38 Respiratory Rate 23 H 07/24/23 14:38 Blood Pressure 123/92 07/24/23 14:38 Pulse Oximetry 95 07/24/23 14:38 Oxygen Delivery Me thod Room Air 07/24/23 14:38 MDM - General Adult Medical Decision Making 58-year-old female comes in today with increased cough and congestion. Patient was recently seen in the emergency department and diagnosed with Burmese scabies. Patient at that time had her steroids stopped and was continued on some cephalexin. Today the rash appears erythematous but some of the crusting has improved since a dose of permethrin has been used. Lungs are increased wheezing throughout with decreased air movement. Patient has COPD and diabetes mellitus. Vital signs are stable. Differential diagnosis includes allergic reaction, exacerbation of COPD, viral syndrome, pneumonia. Chest x-ray showed no pneumonia. Laboratory values showed increase in white blood cell count, CRP was elevated at 122, sed rate was normal. Potassium was low at 2.9. Blood glucose was 228. White blood cell count was 14.3. Chest x-ray was normal. Patient was medicated with albuterol and a DuoNeb treatment with improvement in air movement. Patient was given 0.3 of epi with no significant improvement in wheezing or rash. Patient was given Benadryl to help with itching. Patient was given 125 mg of methylprednisolone per ID. Patient was given 25 Benadryl for itching. Patient had significant improvement in respirations and air movement throughout lung ramos. I believe the patient probably had an acute exacerbation of COPD with the cessation of her steroids for the treatment of her Burmese scabies. Patient may also have a secondary allergic reaction to the cephalexin due to her history of penicillin allergy. We will have to start patient back on prednisone for treatment of her exacerbation of COPD. We stop the cephalexin will start on doxycycline. Patient will continue with treatment plan for Burmese scabies. Patient was also started on nebulizer treatments 4 times a day for her COPD. Lab Data 07/24/23 13:36 07/24/23 13:36 Radiology Impressions Chest X-Ray 07/24/23 13:19 IMPRESSION: No acute intrathoracic findings. Laboratory Results WBC 14.36 10^3/uL (3.29-11.43) H 07/24/23 13:36 RBC 5.12 10^6/uL (3.85-5.65) 07/24/23 13:36 Hgb 14.40 g/dL (11.27-16.99) 07/24/23 13:36 Hct 42.5 % (36-47) 07/24/23 13:36 MCV 83.0 fl (85-98) L 07/24/23 13:36 MCH 28.1 pg (27-33) 07/24/23 13:36 MCHC 33.9 g/dL (30-55) 07/24/23 13:36 RDW 14.8 % (12.1-15.1) 07/24/23 13:36 Plt Count 464 10^3/cmm (157-399) H 07/24/23 13:36 MPV 9.4 fL (7.4-10.4) 07/24/23 13:36 Neut % (Auto) 42.5 % 07/24/23 13:36 Lymph % (Auto) 18.9 % 07/24/23 13:36 [place] % (Auto) 3.1 % 07/24/23 13:36 Eos % (Auto) 34.5 % 07/24/23 13:36 Baso % (Auto) 0.5 % 07/24/23 13:36 Neut # (Auto) 6.10 10^3/uL (1.8-7.7) 07/24/23 13:36 Lymph # (Auto) 2.7 10^3/uL (0.8-4.8) 07/24/23 13:36 [place] # (Auto) 0.5 10^3/uL (0.2-0.9) 07/24/23 13:36 Eos # (Auto) 5.0 10^3/uL (0.0-0.8) H 07/24/23 13:36 Baso # (Auto) 0.1 10^3/uL (0.0-0.1) 07/24/23 13:36 Nucleated RBC % (auto) 0 % 07/24/23 13:36 Nucleated RBCs # 0.0 /100WBC 07/24/23 13:36 ESR 7 mm/hr (0-15) 07/24/23 13:36 Specimen Type Arterial 07/24/23 14:22 Sample Site Radial, left 07/24/23 14:22 ABG pH 7.51 (7.35-7.45) H 07/24/23 14:22 ABG pCO2 37.5 mmHg (35-45) 07/24/23 14:22 ABG pO2 75.8 mmHg (80.0-100.0) L 07/24/23 14:22 ABG PO2/FiO2 Ratio 0 07/24/23 14:22 ABG HCO3 30.1 mmol/L (22-26) H 07/24/23 14:22 ABG Base Excess 6.7 mmol/L (-2.0-2.0) H 07/24/23 14:22 José Luis Test Pos 07/24/23 14:22 Hematocrit 42.0 % (37-47) 07/24/23 14:22 O2 Delivery Device Room air 07/24/23 14:22 FiO2 21.0 % 07/24/23 14:22 Vehicle Fuel Systems Converter ID Cak 07/24/23 14:22 Sodium 137 mmol/L (136-145) 07/24/23 13:36 Potassium 2.9 mmol/L (3.5-5.1) L 07/24/23 13:36 Chloride 91 mmol/L (98-107) L 07/24/23 13:36 Carbon Dioxide 31 mmol/L (22-29) H 07/24/23 13:36 Anion Gap 17.9 (5-19) 07/24/23 13:36 BUN 9 mg/dL (6-20) 07/24/23 13:36 Creatinine 0.9 mg/dL (0.5-0.9) 07/24/23 13:36 GFR Calculation 64.8 mL/min (90-130) L 07/24/23 13:36 Glucose 228 mg/dL (65-115) H 07/24/23 13:36 Calculated Osmolality 290 mOsm/kg (285-295) 07/24/23 13:36 Calcium 7.3 mg/dL (8.5-10.5) L 07/24/23 13:36 Total Bilirubin 1.2 mg/dL (0.15-1.2) 07/24/23 13:36 AST 22 U/L (0-32) 07/24/23 13:36 ALT 18 U/L (0-33) 07/24/23 13:36 Alkaline Phosphatase 100 U/L (35-105) 07/24/23 13:36 C-Reactive Protein 122.2 mg/L (0.0-4.9) H 07/24/23 13:36 Total Protein 6.5 g/dL (6.6-8.7) L 07/24/23 13:36 Albumin 3.2 g/dL (3.5-5.2) L 07/24/23 13:36 Globulin 3.3 g/dL (1.3-4.6) 07/24/23 13:36 Serum Ketones Negative (Negative) 07/24/23 13:36 Influenza Type A Ag negative (Negative) 07/24/23 14:11 Influenza Type B Ag negative (Negative) 07/24/23 14:11 SARS-CoV-2 Ag (Rapid) negative (Negative) 07/24/23 14:11 All radiology interpretation(s) finalized by discharge Discharge Plan Discharge Patient Disposition: Home Clinical Impression: Acute exacerbation of chronic obstructive pulmonary disease (COPD), Burmese scabies, Allergic reaction due to antibacterial drug Condition: Stable Prescriptions: New prednisone 20 mg tablet 20 mg PO BID Qty: 20 0RF doxycycline hyclate 100 mg tablet 100 mg PO BID 10 Days Qty: 20 0RF ipratropium-albuterol 0.5 mg-3 mg(2.5 mg base)/3 mL solution for nebulization 3 ml inhalation QID Qty: 180 0RF No Action losartan-hydrochlorothiazide 100-25 mg tablet 1 tab PO DAILY metoprolol tartrate 25 mg tablet 25 mg PO DAILY metformin 500 mg tablet 500 mg PO DAILY amlodipine 10 mg tablet 10 mg PO DAILY levothyroxine 125 mcg tablet 152 mcg PO DAILY ivermectin 3 mg tablet 15 mg PO DAILY Qty: 25 0RF Rx Instructions: take on day 1,2,8,9 and 15 permethrin 5 % cream 1 applic topical Q14D Qty: 120 1RF Rx Instructions: apply second treatment after 7 days potassium chloride 10 mEq capsule, extended release 10 meq PO DAILY Qty: 7 0RF promethazine-DM 6.25-15 mg/5 mL syrup 5 ml PO Q6H PRN (Reason: cough) Qty: 118 0RF Discharge Orders: Discharge ED (Routine); Ordered 07/24/23 Ordered By: Tremayne Manjarrez Other Ambulatory Orders: DME: Nebulizer with Neb Kit (Order) Location: None Selected Ordered By: Tremayne Manjarrez Referrals: Merissa Foster FNP [Primary Care Provider] - Patient Instructions: COPD (Chronic Obstructive Pulmonary Disease) (ED), Opioid Safety, Pain Management Activity Restrictions/Additional Instructions: Stop cephalexin. Use nebulizer treatments 4 times a day. Take prednisone as directed. Take doxycycline 1 tablet twice a day for the next 7 to 10 days. Use albuterol as needed every 4 hours for breakthrough shortness of breath. Drink plenty of water. Continue with routine medications as directed. Follow-up with primary care in 1 week for recheck. Return to the ER for worsening shortness of breath or new concerns. Coding Level of Care Code ED Agricultural Equipment Design Engineer for Charles Mcneill
--- NOTE | 2023-07-24 13:19 | XRR_ITS ---
PROCEDURE INFORMATION: Exam: XR Chest Exam date and time: 07/24/2023 1:23 PM Age: 58 years old Clinical indication: Cough and fever TECHNIQUE: Imaging protocol: Radiologic exam of the chest. Views: 1 view. COMPARISON: CT chest w con* [id number] 07/10/2022 3:31 PM FINDINGS: Lungs: No consolidation. Pleural spaces: No sizable pleural effusion or pneumothorax. Heart/Mediastinum: No cardiomegaly. Bones/joints: Unremarkable. XR/XR chest 1V portable [id number] IMPRESSION: No acute intrathoracic findings.
[2023-07-24] MEDS: ipratropium-albuterol 3 mL Neb INHALATION (13:25)
[2023-07-24 13:42] LABS: Basophils # 0.1 10^3/uL (0.0-0.1); Basophils % 0.5 %; Eosinophils % 34.5 %; Hematocrit 42.5 % (36-47); Lymphocytes # 2.7 10^3/uL (0.8-4.8); Lymphocytes % 18.9 %; Mean Corpuscular HGB Conc 33.9 g/dL (30-55); Mean Corpuscular Hemoglobin 28.1 pg (27-33); Mean Platelet Volume 9.4 fL (7.4-10.4); Monocytes # 0.5 10^3/uL (0.2-0.9); Monocytes % 3.1 %; Neutrophils % 42.5 %; Nucleated Red Blood Cells % 0 %; Platelet Count 464 10^3/cmm (157-399); Red Blood Count 5.12 10^6/uL (3.85-5.65); Red Cell Distribution Width 14.8 % (12.1-15.1); White Blood Count 14.36 10^3/uL (3.29-11.43)
[2023-07-24 13:44] LABS: Erythrocyte Sedimentation Rate 7 mm/hr (0-15)
[2023-07-24 13:57] LABS: Alanine Aminotransferase 18 U/L (0-33); Albumin Level 3.2 g/dL (3.5-5.2); Alkaline Phosphatase 100 U/L (35-105); Anion Gap 17.9 (5-19); Aspartate Amino Transferase 22 U/L (0-32); Blood Urea Nitrogen 9 mg/dL (6-20); C Reactive Protein 122.2 mg/L (0.0-4.9); Calcium 7.3 mg/dL (8.5-10.5); Carbon Dioxide 31 mmol/L (22-29); Chloride 91 mmol/L (98-107); Globulin 3.3 g/dL (1.3-4.6); Glomerular Filtration Rate 64.8 mL/min (90-130); Glucose 228 mg/dL (65-115); Osmolality Calculated 290 mOsm/kg (285-295); Sodium 137 mmol/L (136-145); Total Bilirubin 1.2 mg/dL (0.15-1.2); Total Protein 6.5 g/dL (6.6-8.7)
[2023-07-24 13:59] LABS: Potassium 2.9 mmol/L (3.5-5.1)
[2023-07-24 14:05] LABS: Ketone (Acetest) Serum Negative (Negative)
[2023-07-24] MEDS: diphenhydrAMINE 50 mg/mL SDV 1mL 25 MG IVP (14:08)
[2023-07-24] MEDS: methylPREDNISolone sod succ 125 mg/2 mL INJ IVP (14:10)
[2023-07-24] MEDS: sodium chloride 0.9% 1,000 ML 999 ML IV (14:12)
[2023-07-24] MEDS: albuterol 2.5 mg/3 mL Neb INHALATION (14:19)
[2023-07-24 14:33] LABS: ABG PCO2 37.5 mmHg (35-45); ABG PH Result 7.51 (7.35-7.45); Base Excess ABG 6.7 mmol/L (-2.0-2.0); Blood Gas Allen Test Pos; Blood Gas Operator Identificat CAK; Blood Gas Sample Site Radial, left; Blood Gas Sample Type Arterial; HCO3 ABG 30.1 mmol/L (22-26); Oxygen Device ROOM AIR; PO2 ABG 75.8 mmHg (80.0-100.0); PO2 FiO2 Ratio Arterial Blood 0
[2023-07-24] MEDS: EPINEPHrine 1 mg/mL INJ 0.3 MG IM (14:34)
[2023-07-24] MEDS: potassium chloride oral liq 20 mEq/15 mL UDC 40 MEQ PO (14:35)
[2023-07-24 14:41] LABS: SARS Covid-2 Antigen negative (Negative)
[2023-07-24 14:42] LABS: Influenza A by IFA negative (Negative); Influenza B by IFA negative (Negative)
--- NOTE | 2023-07-24 15:14 | PC.PHAR ---
PT STATES SHOULD BE TAKING ASA 81 MG DAILY BUT IS OUT. 07/24/23
[2023-07-24] MEDS: doxycycline 100 mg Tablet PO (15:59)
== END 2023-07-24 16:20 | disposition home or self-care (01) ==
PROVIDERS: Emergency Provider Nurse Practitioner Family; PCP Nurse Practitioner Family
DX: J44.1 Chronic obstructive pulmonary disease with (acute) exacerbation (principal); B86 Scabies; T78.40XA Allergy, unspecified, initial encounter; T36.1X5A Adverse effect of cephalosporins and other beta-lactam antibiotics, initial encounter; Z11.52 Encounter for screening for COVID-19; Z79.84 Long term (current) use of oral hypoglycemic drugs
CPT/HCPCS: 36415; 36600; 71045; 80053; 82009; 82803; 85025; 85651; 86140; 87426; 87804; 94640; 96361; 96372; 96374; 96375; 99284; J0171; J1200; J2930; J7030; J7613

== ENCOUNTER 2023-07-26 10:54 | Outpatient (CLI) | payer OTHER, SELFPAY ==
[2023-07-26 11:19] LABS: Basophils # 0.1 10^3/uL (0.0-0.1); Basophils % 0.5 %; Eosinophils # 0.1 10^3/uL (0.0-0.8); Eosinophils % 0.9 %; Hematocrit 36.7 % (36-47); Lymphocytes # 2.5 10^3/uL (0.8-4.8); Lymphocytes % 24.1 %; Mean Corpuscular HGB Conc 33.5 g/dL (30-55); Mean Corpuscular Hemoglobin 28.1 pg (27-33); Mean Corpuscular Volume 83.8 fl (85-98); Mean Platelet Volume 9.1 fL (7.4-10.4); Monocytes # 0.8 10^3/uL (0.2-0.9); Monocytes % 7.5 %; Neutrophils # 6.65 10^3/uL (1.8-7.7); Neutrophils % 65.2 %; Nucleated Red Blood Cells % 0 %; Platelet Count 422 10^3/cmm (157-399); Red Blood Count 4.38 10^6/uL (3.85-5.65); Red Cell Distribution Width 15.3 % (12.1-15.1); White Blood Count 10.19 10^3/uL (3.29-11.43)
[2023-07-26 11:34] LABS: Albumin Level 3.5 g/dL (3.5-5.2)
[2023-07-26 12:05] LABS: Alanine Aminotransferase 42 U/L (0-33); Alkaline Phosphatase 118 U/L (35-105); Anion Gap 20.2 (5-19); Aspartate Amino Transferase 44 U/L (0-32); Blood Urea Nitrogen 23 mg/dL (6-20); Carbon Dioxide 30 mmol/L (22-29); Chloride 101 mmol/L (98-107); Globulin 3.7 g/dL (1.3-4.6); Glomerular Filtration Rate 29.1 mL/min (90-130); Glucose 242 mg/dL (65-115); Osmolality Calculated 316 mOsm/kg (285-295); Potassium 4.2 mmol/L (3.5-5.1); Sodium 147 mmol/L (136-145); Total Bilirubin 0.7 mg/dL (0.15-1.2); Total Protein 7.2 g/dL (6.6-8.7)
== END 2023-07-26 10:55 | disposition home or self-care (01) ==
LOC: LAB 10:54
PROVIDERS: PCP Nurse Practitioner Family; Visit Provider Dermatology
DX: L30.9 Dermatitis, unspecified (principal)
CPT/HCPCS: 36415; 80053; 85025

== ENCOUNTER 2023-07-26 14:28 | Observation (INO) | payer OTHER, SELFPAY ==
[2023-07-26 15:52] VITALS: BMI 33.5
--- NOTE | 2023-07-26 17:44 | PM.HP ---
Providers/Chief Complaint Admitting Physician: Maurilio Caicedo MD Primary Care Provider: LLUVIA Richter Chief Complaint: ELIZABETH History of Present Illness Maura Arana is a 58 year old female who has been sent to the clinic by tone artist apprentice for concern of dress syndrome. Patient is stating that her symptoms started 3 weeks ago with skin sloughing off which she attributed initially to just dryness, but her symptoms got worse, she noticed fever 100.1 and then 101 recent fever was roughly 4 days ago, she has not noticed any rash around her eyes, buccal mucosa, UTI or diarrhea. She has not noticed any shortness of breath or chest pain. She does not have exotic pets, no recent traveling. Patient is stating that she is compliant with her medication and has not added a new medication for diabetes or blood pressure She has been evaluated in the ER multiple times, she was referred to dermatology for concern related to scabies, she has received treatment however Dr. Rdz thinks this is unlikely Skin biopsy has been obtained Patient has been taking steroids Her eosinophil count is trending down however she does have ELIZABETH with hyperglycemia She has never experienced skin rash before, no problems with her swallowing, no vision change. She is not complaining of headache, significant joint pains. Review of Systems Const: Reports: fever(s) Eyes: Denies: change in vision ENMT: Denies: throat pain Card: Denies: chest pain Resp: Denies: dyspnea GI: Denies: abdominal pain : Denies: flank pain Skin/Breast: Reports: rash, pruritus, erythema, photosensitivity and new lesions Medications/Allergies Home Medications Medication Instructions Recorded Confirmed Last Taken Type losartan 100 1 tab PO DAILY 07/26/20 07/24/23 07/24/23 History mg-hydrochlorothiazide 25 mg tablet metformin 500 mg tablet 500 mg PO DAILY 07/26/20 07/24/23 07/24/23 History metoprolol tartrate 25 mg tablet 25 mg PO DAILY 07/26/20 07/24/23 07/23/23 History ivermectin 3 mg tablet 15 mg (5 x 3 mg) PO DAILY 5 doses 07/21/23 07/24/23 Unknown Rx #25 tabs permethrin 5 % topical cream 1 applic topical Q14D 2 doses #120 07/21/23 07/24/23 Unknown Rx grams potassium chloride 10 mEq 10 meq PO DAILY #7 caps 07/21/23 07/24/23 07/23/23 Rx capsule,extended release promethazine-DM 6.25 mg-15 mg/5 mL 5 ml PO Q6H PRN cough #118 mL 07/21/23 07/24/23 07/24/23 Rx oral syrup amlodipine 10 mg tablet 10 mg PO DAILY 07/24/23 07/24/23 07/24/23 History doxycycline hyclate 100 mg tablet 100 mg PO BID 10 days #20 tabs 07/24/23 Unknown Rx ipratropium 0.5 mg-albuterol 3 mg 3 ml inhalation QID #180 mL 07/24/23 Unknown Rx (2.5 mg base)/3 mL nebulization soln levothyroxine 125 mcg tablet 152 mcg PO DAILY 07/24/23 07/24/23 07/24/23 History prednisone 20 mg tablet 20 mg PO BID #20 tabs 07/24/23 Unknown Rx Allergies Allergy/AdvReac Type Severity Reaction Status Date / Time cephalexin Allergy ALGY-Rash Verified 07/24/23 14:20 Penicillins Allergy swelling Verified 11/18/22 16:27 PFSH Acute PFSH: Medical History Hypertension Diabetes mellitus Hypothyroid Social History Smoking and tobacco/nicotine status: never used tobacco/nicotine Alcohol intake: never Substance/Drug Use: never Vitals/I&O/Wt Last Vital Signs O2 Del Method Room Air 07/26/23 15:52 Weight last 48 hrs Weight 75.16 kg Physical Exam Narrative: Diffuse skin rash Multiple bhakta skin scales Pruritic in nature however nontender No active bulla or vesicles GCS 15 Nonfocal neuroexam I do not see any rash around her mucous membranes Pleasant cough S1, S2 and currently on room air A&P Assessment and plan (1) Allergic reaction due to antibacterial drug: (2) Morbid obesity: Plan Dress syndrome Will use topical steroids Vaseline topical and use of IV steroids Will keep her on doxycycline for MRSA prophylactic regimen Consistent carb diet Will use sliding scale along insulin Check A1c level Check inflammatory markers I do not suspect bullous pemphigoid, no vesicles or bullae formation, no rash around mucous membranes She has been treated for scabies, it is unlikely she does have pets at home including dogs and cats No recent use of new antibiotics or antihypertensive regimen ELIZABETH, give her IV fluids Hold nephrotoxic agents such as metformin, hydrochlorothiazide losartan Attestations Medical Necessity Statement*: Anticipating discharge within 48 hours Diagnoses Allergic reaction due to antibacterial drug T36.95XA Morbid obesity E66.01
[2023-07-26 18:13] LABS: Glucose Point of Care 155 mg/dL (70-110)
[2023-07-26] MEDS: enoxaparin 40 mg/0.4 mL Syringe SUBCUT (18:14)
[2023-07-26] MEDS: methylPREDNISolone sod succ 125 mg/2 mL INJ 60 MG IVP (18:14)
[2023-07-26] MEDS: triamcinolone 0.1% cream 15 gm 1 APPLIC TOPICAL (18:14)
[2023-07-26] MEDS: sodium chloride 0.9% 1,000 ML 999 ML IV (18:15)
[2023-07-26] MEDS: pantoprazole 40 mg SDV IVP (18:15)
[2023-07-26] MEDS: sodium chloride 0.9% 1,000 ML 75 ML IV (18:16)
[2023-07-26] MEDS: insulin lispro 100 unit/1 mL SUBCUT (18:30)
[2023-07-26] MEDS: ipratropium-albuterol 3 mL Neb INHALATION (18:32)
[2023-07-26 18:41] VITALS: PULSE 94; RESP 22; O2SAT 96
[2023-07-26 19:15] LABS: Procalcitonin 0.14 ng/mL (0-0.5); Thyroid Stimulating Hormone 2.74 uIU/mL (0.27-4.20)
[2023-07-26 20:00] VITALS: BP 137/6; PULSE 79; RESP 18; TEMP 36.4; O2SAT 95
[2023-07-26 21:02] LABS: Glucose Point of Care 226 mg/dL (70-110)
[2023-07-26 21:10] LABS: Estmated Average Glucose 194; Hemoglobin A1C 8.4 % (4.0-6.0)
[2023-07-26] MEDS: insulin glargine 100 units/1 mL 10 UNIT SUBCUT (21:56)
[2023-07-27] VITALS (8 sets, daily range): BP systolic 144–177; BP diastolic 48–95; PULSE 57–75; RESP 16–18; TEMP 36.6–37; O2SAT 91–96
[2023-07-27] MEDS: methylPREDNISolone sod succ 125 mg/2 mL INJ 60 MG IVP ×3 (01:00→21:54)
[2023-07-27] MEDS: sodium chloride 0.9% 1,000 ML 75 ML IV (01:04)
[2023-07-27 04:39] LABS: Basophils % 0.6 %; Eosinophils # 0.1 10^3/uL (0.0-0.8); Eosinophils % 0.7 %; Hematocrit 34.3 % (36-47); Lymphocytes % 14.2 %; Mean Corpuscular HGB Conc 32.4 g/dL (30-55); Mean Corpuscular Hemoglobin 27.6 pg (27-33); Mean Corpuscular Volume 85.3 fl (85-98); Mean Platelet Volume 9.5 fL (7.4-10.4); Monocytes # 0.2 10^3/uL (0.2-0.9); Monocytes % 2.5 %; Neutrophils # 5.45 10^3/uL (1.8-7.7); Neutrophils % 80.8 %; Nucleated Red Blood Cells % 0 %; Platelet Count 372 10^3/cmm (157-399); Red Blood Count 4.02 10^6/uL (3.85-5.65); Red Cell Distribution Width 15.3 % (12.1-15.1); White Blood Count 6.75 10^3/uL (3.29-11.43)
[2023-07-27 04:59] LABS: Alanine Aminotransferase 106 U/L (0-33); Albumin Level 3.2 g/dL (3.5-5.2); Alkaline Phosphatase 155 U/L (35-105); Anion Gap 17.5 (5-19); Aspartate Amino Transferase 129 U/L (0-32); Blood Urea Nitrogen 20 mg/dL (6-20); C Reactive Protein 29.6 mg/L (0.0-4.9); Carbon Dioxide 27 mmol/L (22-29); Chloride 100 mmol/L (98-107); Globulin 3.1 g/dL (1.3-4.6); Glomerular Filtration Rate 46.5 mL/min (90-130); Glucose 303 mg/dL (65-115); Magnesium 1.5 mg/dL (1.7-2.3); Osmolality Calculated 306 mOsm/kg (285-295); Potassium 3.5 mmol/L (3.5-5.1); Sodium 141 mmol/L (136-145); Total Bilirubin 0.6 mg/dL (0.15-1.2); Total Protein 6.3 g/dL (6.6-8.7)
[2023-07-27 06:59] LABS: Glucose Point of Care 333 mg/dL (70-110)
[2023-07-27 08:47] LABS: Lipase 22 U/L (13-60)
[2023-07-27] MEDS: insulin lispro 100 unit/1 mL SUBCUT ×3 (08:49→18:19)
[2023-07-27] MEDS: pantoprazole 40 mg SDV IVP ×2 (08:51→18:19)
[2023-07-27] MEDS: metoprolol tartrate 25 mg Tablet PO (08:51)
[2023-07-27] MEDS: levothyroxine 150 mcg Tablet PO (08:52)
[2023-07-27] MEDS: amlodipine 10 mg Tablet PO (08:52)
[2023-07-27] MEDS: sennosides-docusate Tablet 1 TAB PO (08:52)
[2023-07-27] MEDS: ipratropium-albuterol 3 mL Neb INHALATION (09:01)
[2023-07-27 09:08] LABS: Hepatitis A Antibody IgM Non-Reactive (Nonreactive); Hepatitis B Core AB, Total Non-Reactive (Nonreactive); Hepatitis B Surface AB < 3.5 (11.5-1000); Hepatitis B Surface Antigen Non-Reactive (Nonreactive); Hepatitis C Virus Antibody Non-Reactive (Nonreactive)
--- NOTE | 2023-07-27 09:11 | CTR_ITS ---
PROCEDURE INFORMATION: Exam: CT Chest Without Contrast; Diagnostic Exam date and time: 07/27/2023 9:19 AM Age: 58 years old Clinical indication: Other: Abd pain; Cough; Prior surgery; Surgery date: 6+ months; Surgery type: Tubal TECHNIQUE: Imaging protocol: Diagnostic computed tomography of the chest without contrast. Radiation optimization: All CT scans at this facility use at least one of these dose optimization techniques: automated exposure control; mA and/or kV adjustment per patient size (includes targeted exams where dose is matched to clinical indication); or iterative reconstruction. COMPARISON: CT chest w con* [id number] 07/10/2022 3:31 PM RADIATION DOSE METRICS: Total DLP (mGy-cm): 1159.71 FINDINGS: Lungs: Consolidation at the dependent bases may reflect atelectasis. Pneumonia, particularly on the right, is difficult to exclude. There is mild peribronchial wall thickening. No pulmonary mass. Calcified granuloma in the right middle lobe. Pleural spaces: Trace bilateral pleural effusions. No pneumothorax. Heart: No pericardial effusion. The heart is enlarged. Coronary arteries: Coronary arterial calcifications are noted. Lymph nodes: No significant mediastinal lymphadenopathy. A left axillary lymph node measures 1.0 x 1.6 cm. A right axillary lymph node measures 1.8 x 1.9 cm. Vasculature: No thoracic aortic aneurysm. Diaphragm: No hiatal hernia. Bones/joints: No acute fracture is seen. Soft tissues: No significant subcutaneous soft tissue swelling. PROCEDURE INFORMATION: Exam: CT Abdomen And Pelvis Without Contrast Exam date and time: 07/27/2023 9:19 AM Age: 58 years old Clinical indication: Other: Abd pain; Cough; Prior surgery; Surgery date: 6+ months; Surgery type: Tubal TECHNIQUE: Imaging protocol: Computed tomography of the abdomen and pelvis without contrast. Radiation optimization: All CT scans at this facility use at least one of these dose optimization techniques: automated exposure control; mA and/or kV adjustment per patient size (includes targeted exams where dose is matched to clinical indication); or iterative reconstruction. COMPARISON: CT abdomen pelvis w con* [id number] 11/18/2022 5:53 PM RADIATION DOSE METRICS: Total DLP (mGy-cm): 1159.71 FINDINGS: Liver: The liver is enlarged measuring 21.8 cm. There is mild hepatic steatosis Gallbladder and bile ducts: The gallbladder wall appears thickened with adjacent edema. No definite stone. Consider ultrasound. Pancreas: The pancreas is unremarkable. Spleen: A small splenic hypodensity may represent a hemangioma. Adrenal glands: The adrenal glands are unremarkable. Kidneys and ureters: Nonobstructive right renal stone. No hydronephrosis. Stomach and bowel: The stomach and small bowel are unremarkable. Colonic diverticulosis without evidence of acute diverticulitis. Appendix: The appendix is unremarkable. Intraperitoneal space: No free intraperitoneal air is seen. Vasculature: No abdominal aortic aneurysm. Lymph nodes: No retroperitoneal lymphadenopathy. A right pelvic lymph node measures 1.1 x 3.4 cm. A left pelvic lymph node measures 1.3 x 2.1 cm. Urinary bladder: The bladder is partially decompressed. Reproductive: The uterus and adnexa are grossly unremarkable. Bones/joints: No acute fracture is seen. Soft tissues: Small fat containing umbilical hernia. CT/[place] [id number] IMPRESSION: 1. There is mild peribronchial wall thickening; query viral infection/bronchitis, chronic bronchitis and/or asthma. 2. Consolidation at the dependent bases may reflect atelectasis. Pneumonia, particularly on the right, is difficult to exclude. 3. Cardiomegaly with coronary artery disease. 4. Trace bilateral pleural effusions. 5. Mild bilateral axillary lymphadenopathy. IMPRESSION: 1. The gallbladder wall appears thickened with adjacent edema. No definite stone. Consider ultrasound. 2. Nonobstructive right renal stone. No hydronephrosis. 3. Hepatomegaly with hepatic steatosis. 4. Mild bilateral pelvic lymphadenopathy.
--- NOTE | 2023-07-27 09:52 | P.PN_ITS ---
Subjective 2 Subjective: Liver enzymes worsening Requested hepatitis panel which is unremarkable Bilirubin normal Of Phosphatase is high Will request autoimmune workup today Requested CT chest abdomen pelvis Vitals/I&O/Wt Last Vital Signs Temp 98.3 F 07/27/23 08:00 Pulse 69 07/27/23 09:06 Resp 18 07/27/23 09:01 BP 177/95 07/27/23 08:00 Pulse Ox 96 07/27/23 09:01 O2 Del Method Room Air 07/27/23 09:01 07/26/23 07/27/23 07/27/23 22:59 06:59 14:59 Intake Total 2240 / 2240 2451.25 / 4691.25 240 / 240 Output Total 350 / 350 575 / 925 Balance 1890 / 1890 1876.25 / 3766.25 240 / 240 Weight last 48 hrs Weight 83.642 kg Weight 75.16 kg Physical Exam 2 Narrative: Awake and alert Diffuse skin rash with scales Currently on room air Hemodynamic stable Facial rash seems to be getting better No active signs of cellulitis Data 07/27/23 04:03 07/27/23 04:03 A&P Assessment and plan (1) Allergic reaction due to antibacterial drug: (2) COPD (chronic obstructive pulmonary disease) with chronic bronchitis: (3) DRESS syndrome: (4) Abnormal transaminases: Plan Dress syndrome Eosinophils are not high responded well to steroids We do not have triamcinolone tub I will give her prescription to pick that up from the [facility] Pneumonia/bronchitis I will change antibiotic to ceftriaxone and doxycycline Known active smoker, does not use oxygen Abnormal transaminases, little bit normal high alkaline phosphatase Will request gallbladder ultrasound, CT abdomen pelvis showed gallbladder wall thickening however no stones, will request autoimmune workup as well Hyperglycemia related to steroids, increase the dose of Lantus hemoglobin A1c is around 8.8 Full code Consistent carb diet Request gallbladder ultrasound Attestations 2 Medical Necessity Statement*: Continue medical management Diagnoses Allergic reaction due to antibacterial drug T36.95XA COPD (chronic obstructive pulmonary disease) with chronic bronchitis J44.89 DRESS syndrome D72.12; T50.905A Abnormal transaminases R74.8
--- NOTE | 2023-07-27 09:58 | USR_ITS ---
PROCEDURE INFORMATION: Exam: US Abdomen, Limited; Right Upper Quadrant Exam date and time: 07/27/2023 3:23 PM Age: 58 years old Clinical indication: Abnormal findings; Abnormal lab test; Elevated liver enzymes; Additional info: Lfts high, patient had breakfast. Nurse notified to keep patient npo and will scan TECHNIQUE: Imaging protocol: Real time ultrasound of the abdomen with image documentation. Limited exam focused on the right upper quadrant. COMPARISON: [place] [id number] 07/27/2023 9:19 AM FINDINGS: Liver: Hepatomegaly and hepatic steatosis. Gallbladder: Mild gallbladder wall thickening at 5 mm. Trace pericholecystic fluid. No shadowing gallstones. Sonographic Rosenberg's sign was not reported. Biliary ducts: No dilation. Pancreas: Visualized pancreas is unremarkable. Right kidney: No hydronephrosis. US/US gall bladder [id number] IMPRESSION: Mild gallbladder wall thickening and trace pericholecystic fluid, suggestive of acute cholecystitis. Note, a sonographic Rosenberg's sign was not reported, please correlate clinically as a positive Rosenberg's sign would significantly increase the sensitivity of this pathology.
[2023-07-27 11:18] LABS: Glucose Point of Care 322 mg/dL (70-110)
--- NOTE | 2023-07-27 12:43 | PC.CHAP ---
Pastoral Care Encounter/Spiritual Assessment Type of Contact [] Declined clinical applications specialist visit [] Patient/Family/Request visit [] Outpatient visit [] Follow-up visit [] Physician referral [] Code/Alert [x] Routine visit [] Staff referral [] Actively dying [] Patient sleeping [] Family support [] [] Out of room [] Palliative care [] [] Receiving care in room [] Pre-surgical visit [] Trauma [] Long length of stay [] ICU visit [] Other: Relational/Emotional Strength [x] Patient feels connected with others/family/visitors/staff [] Distress [] Loneliness/isolation [] Abandonment Spirituality of Patient [x] Person of Nikki [] Attends Mu-Ism of their Nikki [] Believes in Prayer [] Reads Bible or Adventist materials [] There are Spiritual issues to be addressed Fire Engineer Interventions [x] Prayer [] Active listening [] Non-anxious presence [] Spiritual/emotional support [] Crisis/trauma care [] Spiritual counseling [] Bereavement support [] Provided bereavement packet [] Provided Bible/devotional materials [] Provided toy/stuffed animal, coloring book to patient or family member [] Provided Communion [] Anointing/Cylinder [] Salvation [] Completed spiritual assessment [] Other: Impact on Illness or Injury [] Angry [x] Fearful [] Anxious [] Often cries [] Exhaustion [] Unable to work [] Unable to attend oriental orthodox [] Unable to walk/stand [] Unable to read [] Unable to drive [] Unable to eat/drink [] Unable to sleep [] Unable to be with family [] Patient intubated [] Other: Summary prayed with patient Time spent with patient 5 min
[2023-07-27 16:35] LABS: Glucose Point of Care 291 mg/dL (70-110)
[2023-07-27] MEDS: enoxaparin 40 mg/0.4 mL Syringe SUBCUT (18:20)
[2023-07-27 20:28] LABS: Glucose Point of Care 254 mg/dL (70-110)
[2023-07-27] MEDS: insulin glargine 100 units/1 mL 15 UNIT SUBCUT (21:54)
[2023-07-28] VITALS (12 sets, daily range): BP systolic 136–171; BP diastolic 72–84; PULSE 56–94; RESP 16–22; TEMP 36.5–37; O2SAT 90–98
--- NOTE | 2023-07-28 03:39 | PC.NURSE ---
Patient c/o shortness of breath. Wheezy on auscultation. Oxygen saturation 93 percent on room air. RT notified to see if there are any PRN breathing treatments available.
[2023-07-28] MEDS: benzonatate 100 mg Capsule 200 MG PO (03:45)
[2023-07-28] MEDS: ipratropium-albuterol 3 mL Neb INHALATION ×4 (04:00→20:45)
[2023-07-28 04:35] LABS: Basophils % 0.4 %; Eosinophils % 0.1 %; Hematocrit 36.1 % (36-47); Lymphocytes # 1.5 10^3/uL (0.8-4.8); Lymphocytes % 17.7 %; Mean Corpuscular HGB Conc 32.4 g/dL (30-55); Mean Corpuscular Hemoglobin 28.1 pg (27-33); Mean Corpuscular Volume 86.6 fl (85-98); Mean Platelet Volume 9.9 fL (7.4-10.4); Monocytes # 0.3 10^3/uL (0.2-0.9); Monocytes % 3.5 %; Neutrophils # 6.27 10^3/uL (1.8-7.7); Neutrophils % 74.7 %; Nucleated Red Blood Cells % 0 %; Platelet Count 349 10^3/cmm (157-399); Red Blood Count 4.17 10^6/uL (3.85-5.65); White Blood Count 8.38 10^3/uL (3.29-11.43)
[2023-07-28 04:55] LABS: Alanine Aminotransferase 103 U/L (0-33); Albumin Level 3.3 g/dL (3.5-5.2); Alkaline Phosphatase 168 U/L (35-105); Anion Gap 14.4 (5-19); Aspartate Amino Transferase 84 U/L (0-32); Blood Urea Nitrogen 25 mg/dL (6-20); Calcium 7.1 mg/dL (8.5-10.5); Carbon Dioxide 29 mmol/L (22-29); Chloride 98 mmol/L (98-107); Globulin 3.2 g/dL (1.3-4.6); Glomerular Filtration Rate 51.4 mL/min (90-130); Glucose 337 mg/dL (65-115); Osmolality Calculated 304 mOsm/kg (285-295); Potassium 3.4 mmol/L (3.5-5.1); Sodium 138 mmol/L (136-145); Total Bilirubin 0.8 mg/dL (0.15-1.2); Total Protein 6.5 g/dL (6.6-8.7)
[2023-07-28] MEDS: levoFLOXacin 750 mg Tablet PO (05:04)
[2023-07-28] MEDS: diphenhydrAMINE 25 mg Capsule PO (05:04)
[2023-07-28 06:28] LABS: Glucose Point of Care 349 mg/dL (70-110)
[2023-07-28] MEDS: ciprofloxacin 400 MG/200 ML PREMIX 200 MG IV ×2 (09:26→20:59)
[2023-07-28] MEDS: metroNIDAZOLE IV 500 MG/100 ML PREMIX 100 MG IV ×2 (09:26→17:17)
[2023-07-28] MEDS: insulin lispro 100 unit/1 mL SUBCUT ×3 (09:27→17:16)
[2023-07-28] MEDS: pantoprazole 40 mg SDV IVP ×2 (09:27→17:15)
[2023-07-28] MEDS: amlodipine 10 mg Tablet PO (09:28)
[2023-07-28] MEDS: metoprolol tartrate 25 mg Tablet PO (09:28)
[2023-07-28] MEDS: methylPREDNISolone sod succ 125 mg/2 mL INJ 60 MG IVP ×2 (09:28→20:58)
[2023-07-28] MEDS: levothyroxine 150 mcg Tablet PO (09:28)
[2023-07-28] MEDS: sennosides-docusate Tablet 1 TAB PO (09:29)
--- NOTE | 2023-07-28 10:19 | P.CONIM_ITS ---
Providers/Reason For Consult 2 Consulting Physician/Specialty*: Dr. Dominic Stewart, DO/General surgery Reason for Consult*: Abnormal gallbladder ultrasound Attending Physician: Erik Mckay MD Primary Care Provider: LLUVIA Richter History of Present Illness History of Present Illness Maura Arana is a 58 year old female who presented to the hospital due to a skin rash. Hospitalist is managing this. While in the hospital she had an episode of epigastric abdominal pain. She is no longer tender but she reports that she had pain across her upper abdomen. The pain was dull and intermittent. She has been getting this pain intermittently for the last at least 3 months. Sometimes the pain comes on with eating and can radiate to her back along with nausea vomiting and diarrhea. She does not have any of the symptoms currently however. She denies any hematochezia and/or melena. Tolerating diet. Gallbladder ultrasound showed possibly thickened gallbladder wall with minimal pericholecystic fluid. No cholelithiasis Review of Systems 2 General: Reports: 10 or more systems reviewed and unremarkable except in HPI and below Medications/Allergies Home Medications Medication Instructions Recorded Confirmed Last Taken Type losartan 100 1 tab PO DAILY 07/26/20 07/27/23 07/25/23 History mg-hydrochlorothiazide 25 mg tablet metoprolol tartrate 25 mg tablet 25 mg PO DAILY 07/26/20 07/27/23 07/25/23 History ivermectin 3 mg tablet 15 mg (5 x 3 mg) PO DAILY 5 doses 07/21/23 07/27/23 07/25/23 Rx #25 tabs permethrin 5 % topical cream 1 applic topical Q14D 2 doses #120 07/21/23 07/27/23 Unknown Rx grams potassium chloride 10 mEq 10 meq PO DAILY #7 caps 07/21/23 07/27/23 07/25/23 Rx capsule,extended release promethazine-DM 6.25 mg-15 mg/5 mL 5 ml PO Q6H PRN cough #118 mL 07/21/23 07/27/23 07/24/23 Rx oral syrup amlodipine 10 mg tablet 10 mg PO DAILY 07/24/23 07/27/23 07/25/23 History doxycycline hyclate 100 mg tablet 100 mg PO BID 10 days #20 tabs 07/24/23 07/27/23 07/26/23 Rx ipratropium 0.5 mg-albuterol 3 mg 3 ml inhalation QID #180 mL 07/24/23 07/27/23 07/25/23 Rx (2.5 mg base)/3 mL nebulization soln levothyroxine 125 mcg tablet 152 mcg PO DAILY 07/24/23 07/27/23 07/26/23 History prednisone 20 mg tablet 20 mg PO BID #20 tabs 07/24/23 07/27/23 07/25/23 Rx Allergies Allergy/AdvReac Type Severity Reaction Status Date / Time cephalexin Allergy ALGY-Rash Verified 07/24/23 14:20 Penicillins Allergy swelling Verified 11/18/22 16:27 Current Medications Generic Name Dose Route Start Last Admin Trade Name Freq PRN Reason Stop Dose Admin Albuterol/Ipratropium 3 ml 07/26/23 17:44 07/28/23 08:25 Ipratropium-Albuterol 3 Ml Neb INHALATION 3 ml Q6H PRN Administration SHORTNESS OF BREATH Amlodipine Besylate 10 mg 07/27/23 09:00 07/28/23 09:28 Amlodipine 10 Mg Tablet PO 10 mg DAILY CAROL Administration Benzonatate 200 mg 07/27/23 09:58 07/28/23 03:45 Benzonatate 100 Mg Capsule PO 200 mg Q6H PRN Administration COUGH Diphenhydramine HCl 25 mg 07/26/23 17:50 07/28/23 05:04 Diphenhydramine 25 Mg Capsule PO 25 mg Q6H PRN Administration ITCHING Enoxaparin Sodium 40 mg 07/26/23 17:45 07/27/23 18:20 Enoxaparin 40 Mg/0.4 Ml Syringe SUBCUT 40 mg Q24H CAROL Administration Metronidazole 500 mg in 100 mls @ 100 mls/hr 07/28/23 08:15 07/28/23 09:26 Flagyl Iv IV 100 mls/hr Q8H CAROL Administration Protocol Ciprofloxacin/Dextrose 400 mg in 200 mls @ 200 mls/hr 07/28/23 08:15 07/28/23 09:26 Cipro IV 200 mls/hr Q12H CAROL Administration Protocol Insulin Glargine 15 unit 07/27/23 21:00 07/27/23 21:54 Insulin Glargine 100 Units/1 Ml SUBCUT 15 unit BEDTIME CAROL Administration Insulin Human Lispro 0 unit 07/26/23 18:00 07/28/23 09:27 Insulin Lispro 100 Unit/1 Ml SUBCUT 12 unit TIDWM CAROL Administration Protocol Levothyroxine Sodium 150 mcg 07/27/23 09:00 07/28/23 09:28 Levothyroxine 150 Mcg Tablet PO 150 mcg DAILY CAROL Administration Methylprednisolone Sodium Succinate 60 mg 07/27/23 21:00 07/28/23 09:28 Methylprednisolone Sod Succ 125 Mg/2 Ml Inj IVP 60 mg Q12H CAROL Administration Metoprolol Tartrate 25 mg 07/27/23 09:00 07/28/23 09:28 Metoprolol Tartrate 25 Mg Tablet PO 25 mg DAILY CAROL Administration Non-Formulary Med( 1 each 07/27/23 18:00 07/28/23 09:30 Triamcinlone 0.1% TOPICAL 1 each Oint) BID CAROL Administration Pantoprazole Sodium 40 mg 07/26/23 18:00 07/28/23 09:27 Pantoprazole 40 Mg Sdv IVP 40 mg BID CAROL Administration Senna/Docusate Sodium 1 tab 07/27/23 09:00 07/28/23 09:29 Sennosides-Docusate Tablet PO 1 tab DAILY CAROL Administration PFSH Acute 2 PFSH: Medical History Hypertension Diabetes mellitus Hypothyroid Social History Smoking and tobacco/nicotine status: never used tobacco/nicotine Alcohol intake: never Substance/Drug Use: never Vitals/I&O/Wt Last Vital Signs Temp 98.0 F 07/28/23 08:00 Pulse 72 07/28/23 08:30 Resp 18 07/28/23 08:25 BP 161/78 07/28/23 08:00 Pulse Ox 97 07/28/23 08:25 O2 Del Method Room Air 07/28/23 08:25 07/27/23 07/28/23 07/28/23 22:59 06:59 14:59 Intake Total 840 / 1080 480 / 480 Output Total 300 / 300 450 / 750 Balance 540 / 780 -450 / 330 480 / 480 Weight last 48 hrs Weight 240 lb Weight 184 lb 6.4 oz Weight 165 lb 11.2 oz Physical Exam 2 Narrative: General : Patient is well developed , no acute distress, oriented x3 Head : Normal cephalic, a-traumatic. Ears : Pinnae and external canal are normal. Hearing is normal. Eyes : PERRLA, Sclera and injection are normal. No conjunctival discharge. Nose : Mucous membranes are without erythema. Throat : buccal mucosa is normal, gums are without significant recession or hypertrophy. Lungs : Equal chest rise bilaterally, no use of accessory muscles, trachea is midline. Cor : Rate and rhythm are normal. Abdomen : Soft, ND, NT, no g/r/m Extremities : No edema, no cyanosis or clubbing, dorsalis pedis pulses are present bilaterally, non-tender to palpation of calves. Upper extremities are normal bilaterally other than a maculopapular rash across her entire body Back : non-tender to palpation, no CVA tenderness. Neuro : CN II - XII intact, Upper and lower extremities have equal and full strength Data 07/28/23 03:52 07/28/23 03:52 A&P Assessment and plan (1) Chronic cholecystitis: Plan No acute surgical intervention I like to see her in my office 2 weeks after discharge for further workup to see if she would benefit from cholecystectomy Medical management per hospitalist Coding Level of Care Code 91470 Diagnoses Chronic cholecystitis K81.1
--- NOTE | 2023-07-28 10:23 | P.PN_ITS ---
Subjective 2 Subjective: This morning patient is feeling much better No right upper quadrant pain Rosenberg sign is negative Appreciate Dr. Stewart's evaluation Patient may need outpatient e intervention for gallbladder Afebrile No eosinophils noted on CBC Most likely patient will be able to go home by tomorrow Significant improvement of skin rash Creatinine improving Potassium 3.4 Abnormal transaminases noted Vitals/I&O/Wt Last Vital Signs Temp 98.0 F 07/28/23 08:00 Pulse 72 07/28/23 08:30 Resp 18 07/28/23 08:25 BP 161/78 07/28/23 08:00 Pulse Ox 97 07/28/23 08:25 O2 Del Method Room Air 07/28/23 08:25 07/27/23 07/28/23 07/28/23 22:59 06:59 14:59 Intake Total 840 / 1080 480 / 480 Output Total 300 / 300 450 / 750 Balance 540 / 780 -450 / 330 480 / 480 Weight last 48 hrs Weight 108.862 kg Weight 83.642 kg Weight 75.16 kg Physical Exam 2 Narrative: Rosenberg sign negative Morbid obese GCS 15 Skin rash improving Multiple scratch cleaning No active signs of cellulitis Pleasant cooperative Currently on room air Abdomen distended however soft Mild discomfort on deep palpation right upper quadrant otherwise no active tenderness Rash around her face significantly improved Data 07/28/23 03:52 07/28/23 03:52 A&P Assessment and plan (1) Allergic reaction due to antibacterial drug: (2) Morbid obesity: (3) Abnormal transaminases: (4) Chronic cholecystitis: (5) Hypokalemia: (6) DRESS syndrome: (7) COPD (chronic obstructive pulmonary disease) with chronic bronchitis: Plan Dress syndrome: Improving significantly with use of steroids Afebrile Abnormal transaminases Chronic cholecystitis Patient will need outpatient evaluation by general surgery Appreciate general surgery recommendations during hospitalization Will replenish electrolytes ELIZABETH: Improving with IV fluid hydration Plan to discharge her by tomorrow Taper steroids Continue topical steroid usage as well No signs of secondary bacterial infection of skin Glycemia related to steroids, I have increased her Lantus Attestations 2 Medical Necessity Statement*: Discharge likely tomorrow Diagnoses Allergic reaction due to antibacterial drug T36.95XA Morbid obesity E66.01 Abnormal transaminases R74.8 Chronic cholecystitis K81.1 Hypokalemia E87.6 DRESS syndrome D72.12; T50.905A COPD (chronic obstructive pulmonary disease) with chronic bronchitis J44.89
[2023-07-28 11:23] LABS: Glucose Point of Care 420 mg/dL (70-110)
[2023-07-28 16:30] LABS: Glucose Point of Care 348 mg/dL (70-110)
[2023-07-28] MEDS: enoxaparin 40 mg/0.4 mL Syringe SUBCUT (17:16)
[2023-07-28 20:51] LABS: Glucose Point of Care 343 mg/dL (70-110)
[2023-07-28] MEDS: insulin glargine 100 units/1 mL 18 UNIT SUBCUT (20:59)
[2023-07-29] VITALS (8 sets, daily range): BP systolic 130–171; BP diastolic 60–85; PULSE 56–78; RESP 16–20; TEMP 36.4–36.8; O2SAT 95–96
[2023-07-29] MEDS: metroNIDAZOLE IV 500 MG/100 ML PREMIX 100 MG IV (00:05)
[2023-07-29] MEDS: ipratropium-albuterol 3 mL Neb INHALATION ×2 (03:00→10:30)
[2023-07-29 03:38] LABS: Basophils % 0.4 %; Eosinophils % 0.1 %; Hematocrit 34.1 % (36-47); Lymphocytes # 1.5 10^3/uL (0.8-4.8); Lymphocytes % 14.8 %; Mean Corpuscular HGB Conc 33.4 g/dL (30-55); Mean Corpuscular Hemoglobin 28.5 pg (27-33); Mean Corpuscular Volume 85.3 fl (85-98); Mean Platelet Volume 10.1 fL (7.4-10.4); Monocytes # 0.5 10^3/uL (0.2-0.9); Neutrophils # 7.59 10^3/uL (1.8-7.7); Neutrophils % 73.9 %; Nucleated Red Blood Cells % 0 %; Platelet Count 395 10^3/cmm (157-399); Red Cell Distribution Width 14.9 % (12.1-15.1); White Blood Count 10.26 10^3/uL (3.29-11.43)
[2023-07-29 03:58] LABS: Alanine Aminotransferase 85 U/L (0-33); Albumin Level 3.2 g/dL (3.5-5.2); Alkaline Phosphatase 137 U/L (35-105); Anion Gap 16.7 (5-19); Aspartate Amino Transferase 52 U/L (0-32); Blood Urea Nitrogen 25 mg/dL (6-20); Calcium 6.9 mg/dL (8.5-10.5); Carbon Dioxide 27 mmol/L (22-29); Chloride 98 mmol/L (98-107); Globulin 2.9 g/dL (1.3-4.6); Glomerular Filtration Rate 64.8 mL/min (90-130); Glucose 361 mg/dL (65-115); Osmolality Calculated 305 mOsm/kg (285-295); Potassium 3.7 mmol/L (3.5-5.1); Sodium 138 mmol/L (136-145); Total Bilirubin 0.6 mg/dL (0.15-1.2); Total Protein 6.1 g/dL (6.6-8.7)
[2023-07-29 06:43] LABS: Glucose Point of Care 339 mg/dL (70-110)
[2023-07-29] MEDS: sennosides-docusate Tablet 1 TAB PO (09:06)
[2023-07-29] MEDS: levothyroxine 150 mcg Tablet PO (09:06)
[2023-07-29] MEDS: pantoprazole 40 mg SDV IVP (09:06)
[2023-07-29] MEDS: metoprolol tartrate 25 mg Tablet PO (09:06)
[2023-07-29] MEDS: amlodipine 10 mg Tablet PO (09:06)
[2023-07-29] MEDS: methylPREDNISolone sod succ 125 mg/2 mL INJ 60 MG IVP (09:07)
[2023-07-29] MEDS: insulin lispro 100 unit/1 mL SUBCUT ×2 (09:07→12:45)
--- NOTE | 2023-07-29 09:53 | PM.DCS ---
Discharge Providers Date of Admission: 07/26/23 14:28 Date of Discharge: July 29, 2023 Attending Provider at Admission: Maurilio Caicedo MD Attending Provider at Discharge: Erik Mckay MD Primary Care Provider: LLUVIA Richter Diagnoses at Discharge Discharge Diagnosis (1) Allergic reaction due to antibacterial drug: Status: Acute (2) Morbid obesity: Status: Acute (3) Abnormal transaminases: Status: Acute (4) Chronic cholecystitis: Status: Acute (5) Hypokalemia: Status: Inactive (6) DRESS syndrome: Status: Acute (7) COPD (chronic obstructive pulmonary disease) with chronic bronchitis: Status: Acute Reason for Visit Reason for Visit: [facility] Hospital Course Hospital Course 58-year female who was admitted from dermatology clinic for concern related to abnormal transaminases, she was being treated with oral and topical steroids for dress syndrome however she has not changed any of her diabetic or antihypertensive regimen recently. Patient responded very well to topical steroids, she was given triamcinolone 0.1% twice a day along methylprednisolone 60 mg every 12 hours her hyperglycemia was corrected with insulin sliding scale. Patient does not use insulin at home, CT abdomen pelvis showed concerning changes related to cholecystitis, general surgery was consulted who recommended outpatient evaluation for cholecystectomy after 2 weeks. Patient remained afebrile she was kept on antibiotics during hospitalization. She did not develop a new rash to ciprofloxacin or Flagyl. I will discontinue her losartan hydrochlorothiazide regimen continue amlodipine, metoprolol add lisinopril Patient does not have scabies, ivermectin could be discontinued. She will use topical steroids, continue doxycycline to prevent secondary bacterial infection, she does not have any active cellulitis of her skin. She was asked to use Vaseline to keep her skin moist Skin biopsy was done by Dr. Kendell gee bili reported separately. She does not seem to have scabies. She may resume her work. Patient will finish Medrol Dosepak I have given her insulin sliding scale moderate intensity, I have counseled her how to use it Physical Exam Narrative: Pleasant cooperative Skin rash improving No rash on her buccal mucosa or eyes GCS 15 Abdomen soft Multiple excoriation rash I do not see any sign of cellulitis Discharge Data Studies Completed and Pending Completed Studies During Hospitalization Category [place] [id number] Stat Cat Scan 07/27/23 09:11 Completed US gall bladder [id number] Routine Ultrasound 07/27/23 09:58 Completed Radiology Impressions Chest/Abdomen/Pelvis CT 07/27/23 09:11 IMPRESSION: 1. There is mild peribronchial wall thickening; query viral infection/bronchitis, chronic bronchitis and/or asthma. 2. Consolidation at the dependent bases may reflect atelectasis. Pneumonia, particularly on the right, is difficult to exclude. 3. Cardiomegaly with coronary artery disease. 4. Trace bilateral pleural effusions. 5. Mild bilateral axillary lymphadenopathy. IMPRESSION: 1. The gallbladder wall appears thickened with adjacent edema. No definite stone. Consider ultrasound. 2. Nonobstructive right renal stone. No hydronephrosis. 3. Hepatomegaly with hepatic steatosis. 4. Mild bilateral pelvic lymphadenopathy. Gallbladder Ultrasound 07/27/23 09:58 IMPRESSION: Mild gallbladder wall thickening and trace pericholecystic fluid, suggestive of acute cholecystitis. Note, a sonographic Rosenberg's sign was not reported, please correlate clinically as a positive Rosenberg's sign would significantly increase the sensitivity of this pathology. Laboratory Results WBC 10.26 10^3/uL (3.29-11.43) 07/29/23 02:44 RBC 4.00 10^6/uL (3.85-5.65) 07/29/23 02:44 Hgb 11.40 g/dL (11.27-16.99) 07/29/23 02:44 Hct 34.1 % (36-47) L 07/29/23 02:44 MCV 85.3 fl (85-98) 07/29/23 02:44 MCH 28.5 pg (27-33) 07/29/23 02:44 MCHC 33.4 g/dL (30-55) 07/29/23 02:44 RDW 14.9 % (12.1-15.1) 07/29/23 02:44 Plt Count 395 10^3/cmm (157-399) 07/29/23 02:44 MPV 10.1 fL (7.4-10.4) 07/29/23 02:44 Neut % (Auto) 73.9 % 07/29/23 02:44 Lymph % (Auto) 14.8 % 07/29/23 02:44 [place] % (Auto) 5.0 % 07/29/23 02:44 Eos % (Auto) 0.1 % 07/29/23 02:44 Baso % (Auto) 0.4 % 07/29/23 02:44 Neut # (Auto) 7.59 10^3/uL (1.8-7.7) 07/29/23 02:44 Lymph # (Auto) 1.5 10^3/uL (0.8-4.8) 07/29/23 02:44 [place] # (Auto) 0.5 10^3/uL (0.2-0.9) 07/29/23 02:44 Eos # (Auto) 0.0 10^3/uL (0.0-0.8) 07/29/23 02:44 Baso # (Auto) 0.0 10^3/uL (0.0-0.1) 07/29/23 02:44 Nucleated RBC % (auto) 0 % 07/29/23 02:44 Nucleated RBCs # 0.0 /100WBC 07/29/23 02:44 Sodium 138 mmol/L (136-145) 07/29/23 02:44 Potassium 3.7 mmol/L (3.5-5.1) 07/29/23 02:44 Chloride 98 mmol/L (98-107) 07/29/23 02:44 Carbon Dioxide 27 mmol/L (22-29) 07/29/23 02:44 Anion Gap 16.7 (5-19) 07/29/23 02:44 BUN 25 mg/dL (6-20) H 07/29/23 02:44 Creatinine 0.9 mg/dL (0.5-0.9) 07/29/23 02:44 GFR Calculation 64.8 mL/min (90-130) L 07/29/23 02:44 Glucose 361 mg/dL (65-115) H 07/29/23 02:44 POC Glucose 339 mg/dL (70-110) H 07/29/23 06:39 Estimat Average Glucose 194 07/26/23 18:21 Hemoglobin A1c 8.4 % (4.0-6.0) H 07/26/23 18:21 Calculated Osmolality 305 mOsm/kg (285-295) H 07/29/23 02:44 Calcium 6.9 mg/dL (8.5-10.5) L 07/29/23 02:44 Magnesium 1.5 mg/dL (1.7-2.3) L 07/27/23 04:03 Total Bilirubin 0.6 mg/dL (0.15-1.2) 07/29/23 02:44 AST 52 U/L (0-32) H 07/29/23 02:44 ALT 85 U/L (0-33) H 07/29/23 02:44 Alkaline Phosphatase 137 U/L (35-105) H 07/29/23 02:44 C-Reactive Protein 29.6 mg/L (0.0-4.9) H 07/27/23 04:03 Total Protein 6.1 g/dL (6.6-8.7) L 07/29/23 02:44 Albumin 3.2 g/dL (3.5-5.2) L 07/29/23 02:44 Globulin 2.9 g/dL (1.3-4.6) 07/29/23 02:44 Lipase 22 U/L (13-60) 07/27/23 04:03 Procalcitonin 0.14 ng/mL (0-0.5) 07/26/23 18:21 TSH 2.74 uIU/mL (0.27-4.20) 07/26/23 18:21 Hepatitis A IgM Ab Non-reactive (Nonreactive) 07/27/23 04:03 Hep Bs Antigen Non-reactive (Nonreactive) 07/27/23 04:03 Hep Bs Antibody < 3.5 (11.5-1000) L 07/27/23 04:03 Hep B Core Total Ab Non-reactive (Nonreactive) 07/27/23 04:03 Hepatitis C Antibody Non-reactive (Nonreactive) 07/27/23 04:03 Vitals Last Vital Signs Temp 97.8 F 07/29/23 07:54 Pulse 61 07/29/23 07:54 Resp 16 07/29/23 07:54 BP 171/85 07/29/23 07:54 Pulse Ox 95 07/29/23 07:54 O2 Del Method Room Air 07/29/23 07:54 Discharge Plan Discharge Patient Disposition: Home Condition: Stable Prescriptions: New triamcinolone acetonide 0.1 % cream 1 applic topical BID Qty: 453.6 0RF lisinopril 20 mg tablet 20 mg PO DAILY Qty: 90 3RF methylprednisolone [Medrol (Claudio)] 4 mg tablets,dose pack See Rx Instructions .ROUTE .COMPLEX Qty: 21 0RF Rx Instructions: orally per package directions insulin lispro [Humalog KwikPen Insulin] 100 unit/mL insulin pen See Rx Instructions .ROUTE .COMPLEX Qty: 15 1RF Rx Instructions: Sliding scale moderate intensity metformin 1,000 mg tablet 500 mg PO BID Qty: 120 0RF Januvia 50 mg tablet 50 mg PO DAILY Qty: 90 3RF Continued levothyroxine 125 mcg tablet 152 mcg PO DAILY doxycycline hyclate 100 mg tablet 100 mg PO BID 10 Days Qty: 20 0RF ipratropium-albuterol 0.5 mg-3 mg(2.5 mg base)/3 mL solution for nebulization 3 ml inhalation QID Qty: 180 0RF permethrin 5 % cream 1 applic topical Q14D Qty: 120 1RF Rx Instructions: apply second treatment after 7 days promethazine-DM 6.25-15 mg/5 mL syrup 5 ml PO Q6H PRN (Reason: cough) Qty: 118 0RF amlodipine 10 mg tablet 10 mg PO DAILY Qty: 90 0RF metoprolol tartrate 25 mg tablet 25 mg PO DAILY Qty: 30 0RF Discontinued losartan-hydrochlorothiazide 100-25 mg tablet 1 tab PO DAILY prednisone 20 mg tablet 20 mg PO BID Qty: 20 0RF ivermectin 3 mg tablet 15 mg PO DAILY Qty: 25 0RF Rx Instructions: take on day 1,2,8,9 and 15 potassium chloride 10 mEq capsule, extended release 10 meq PO DAILY Qty: 7 0RF Discharge Orders: Discharge Order (Routine); Ordered 07/29/23 Ordered By: Erik Mckay Referrals: Dominic Stewart DO [Physician] - 2 weeks Melvina Rdz DO [Physician] - 1 week Discharge Diet: Diabetic Discharge Activity: Increase activity as tolerated Patient Instructions: Opioid Safety Discharge Attestations Time Spent in Discharge Care*: greater than 30 min Quality Metrics Clinical Quality Measures [ No reported AMI, CVA or VTE this stay] Coding Level of Care Code Acute Code for Chg Fwd Diagnoses Allergic reaction due to antibacterial drug T36.95XA Morbid obesity E66.01 Abnormal transaminases R74.8 Chronic cholecystitis K81.1 Hypokalemia E87.6 DRESS syndrome D72.12; T50.905A COPD (chronic obstructive pulmonary disease) with chronic bronchitis J44.89
[2023-07-29 12:26] LABS: Glucose Point of Care 330 mg/dL (70-110)
== END 2023-07-29 13:09 | disposition home or self-care (01) ==
PROVIDERS: Admitting Provider Internal Medicine; PCP Nurse Practitioner Family; Visit Provider Internal Medicine
DX: D72.12 Drug rash with eosinophilia and systemic symptoms syndrome (principal); T36.95XA Adverse effect of unspecified systemic antibiotic, initial encounter; E66.01 Morbid (severe) obesity due to excess calories; Z68.42 Body mass index [BMI] 45.0-49.9, adult; R74.8 Abnormal levels of other serum enzymes; K81.1 Chronic cholecystitis; E87.6 Hypokalemia; T50.905A Adverse effect of unspecified drugs, medicaments and biological substances, initial encounter; J44.89 Other specified chronic obstructive pulmonary disease; N17.9 Acute kidney failure, unspecified; I10 Essential (primary) hypertension; E11.9 Type 2 diabetes mellitus without complications; E03.9 Hypothyroidism, unspecified
CPT/HCPCS: 36415; 36416; 71250; 74176; 76705; 80048; 80053; 82962; 83036; 83690; 83735; 84145; 84443; 85025; 86140; 86705; 86706; 86709; 86803; 87340; 94640; 96372; C9113; G0378; G0379; J0744; J1650; J1815; J2930; J3490; J7030

== ENCOUNTER → 2023-08-07 15:58 | Outpatient (BNVA) | payer OTHER, SELFPAY | PROVIDERS: PCP Nurse Practitioner Family; Visit Provider Surgery | DX: K82.9 Disease of gallbladder, unspecified (principal); Z51.81 Encounter for therapeutic drug level monitoring; Z79.1 Long term (current) use of non-steroidal anti-inflammatories (NSAID) | CPT/HCPCS: 80048; 80076; 85025 ==

== ENCOUNTER 2023-08-15 07:26 | Outpatient (CLI) | payer OTHER, SELFPAY ==
--- NOTE | 2023-08-15 08:00 | NM_ITS ---
WS: [id number] NUCLEAR MEDICINE HIDA SCAN CLINICAL INFORMATION: gallbladder problem TECHNIQUE: Following intravenous administration of 7.5 mCi of technetium 99m mebrofenin, images of th e abdomen were obtained over the course of 60 minutes. Next, gallbladder ejection fraction was determ ined by obtaining preprandial and one-hour postprandial images of the gallbladder following oral jamison stion of Ensure. COMPARISON: Ultrasound gallbladder 07/27/2023 FINDINGS: Hepatomegaly. Normal hepatic excretion. Gallbladder is visualized by 15 minutes. No evidence of acute cholecystitis. Normal common bile duct and small bowel activity. Gallbladder ejection fraction 83% within normal limits. No evidence of chronic cholecystitis. IMPRESSION: 1. No evidence of acute or chronic cholecystitis. 2. Gallbladder ejection fraction 83% within normal limits.
== END 2023-08-15 07:27 | disposition home or self-care (01) ==
PROVIDERS: PCP Nurse Practitioner Family; Visit Provider Surgery
DX: K82.9 Disease of gallbladder, unspecified (principal)
CPT/HCPCS: 78227; A9537

== ENCOUNTER 2025-02-16 07:51 | Outpatient (CLI) | payer OTHER, SELFPAY ==
--- NOTE | 2025-02-16 07:56 | USCV_ITS ---
Maura Arana Age: 59 Gender: F : 1965 Exam Date: 02/16/2025 08:03 Ordering Phys: Merissa FosterP EDUCATION PROGRAM MANAGER Technologist: OCTAVIO Exam Location: [facility] [place] Indication: AAA screening HISTORY: Diameter (cm) AP x Transverse x Length Velocity (cm/s) Waveform Prox Aorta: 1.97 x 2.00 x 55.60 Triphasic Mid Aorta: 1.79 x 1.88 x 88.10 Triphasic Distal Aorta: 1.44 x 1.62 x 77.20 Triphasic Right Iliac Prox: 0.98 x 0.98 x 76.20 Triphasic Left Iliac Prox: 1.10 x 1.48 x 72.20 Triphasic Stent Prox Landing x x Aneurysmal Sac Max x x Lt Lat Sac Dim Rt Lat Sac Dim Stent Dist Landing x x Right Iliac Stent x x Left Iliac Stent x x Right Renal Art Left Renal Art FINDINGS: CONCLUSIONS No evidence of abdominal aortic or bilateral iliac aneurysm. Shahriar Willis MD (Electronically Signed) Final Date: 16 February 2025 10:48 S
--- NOTE | 2025-02-16 08:07 | CT_ITS ---
WS: [email or web address] LDCT LUNG CANCER SCREENING TECHNIQUE: Noncontrast CT of the chest with coronal and sagittal reformatted images. CLINICAL INFORMATION: PERSONAL HISTORY OF NICOTINE DEPENDENCE DLP: 144.01 mGy.cm DIvol: Mean CTDIvol: 3.70 (mGy) All CT scans at [facility] use at least one of these dose optimization techniques: automated exposure control; mA and/or kV adjustment per patient size (includes targeted exams where dose is matched to clinical indication); or iterative reconstruction. FINDINGS: No suspicious pulmonary parenchymal abnormalities. A few calcified granulomas. Normal caliber thoracic aorta. Aortic calcification. Coronary calcification. No mediastinal or hilar lymphadenopathy. No axillary lymphadenopathy. Adrenal glands are normal. Small esophageal hiatal hernia. Partially visualized nonobstructing RIGHT renal parenchymal calculus measuring 10 mm. Moderate thoracic kyphosis. Anterior hypertrophic changes thoracic spine. Disc osteophyte complex at T6-T7 with mild central canal stenosis. CT/CT lung screening [id number] IMPRESSION: LUNG-RADS: 1-Negative FOLLOW UP: 12 Month: Continue annual screening with LDCT
--- NOTE | 2025-02-16 08:07 | CT_ITS ---
WS: [id number] CT NECK TECHNIQUE: Contrast-enhanced CT of the neck with coronal and sagittal reformatted images. CLINICAL INFORMATION: LOCALIZED SWELLING, MASS, LUMP, NECK COMPARISON: 2021 DLP: 267.[address] scans at [facility] use at least one of these dose optimization techniques: automated exposure control; mA and/or kV adjustment per patient size (includes targeted exams where dose is matched to clinical indication); or iterative reconstruction. FINDINGS: Palpable marker RIGHT posterior neck in the area of concern. No suspicious abnormalities in the area of concern. Normal underlying subcutaneous soft tissues. No suspicious cystic or solid lesions in this area. Paranasal sinuses are well aerated. Mild mucosal thickening in the mastoid tips. Parotid glands are normal. Normal submandibular glands. Few prominent LEFT submandibular lymph nodes likely reactive. Normal parapharyngeal fat. Tonsillar calcifications. No evidence of supraglottic or glottic mass. Normal subglottic airway. Lung apices are well aerated. Straightening of the normal cervical lordosis with moderate spondylitic changes. CT/CT neck w con* [id number] IMPRESSION: 1. No suspicious findings deep to the palpable marker RIGHT posterior neck. Ti ny amount of induration in this area unchanged since 2021. 2. No other suspicious findings.
[2025-02-16] MEDS: iohexol 350 mg/mL 500 mL Btl (per mL) IV (08:38)
== END 2025-02-16 07:52 | disposition home or self-care (01) ==
LOC: RAD 07:51
PROVIDERS: PCP Nurse Practitioner Family; Visit Provider Nurse Practitioner Family
DX: Z12.2 Encounter for screening for malignant neoplasm of respiratory organs (principal); R22.1 Localized swelling, mass and lump, neck; Z87.891 Personal history of nicotine dependence; Z13.6 Encounter for screening for cardiovascular disorders
CPT/HCPCS: 70491; 71271; 76706

== ENCOUNTER 2025-03-05 09:19 | Outpatient (CLI) | payer OTHER, SELFPAY ==
--- NOTE | 2025-03-05 09:26 | USR_ITS ---
PROCEDURE INFORMATION: Exam: US Bilateral Noninvasive Physiologic Study of the Lower Extremity Arteries, Limited Exam date and time: 03/05/2025 9:37 AM Age: 60 years old Clinical indication: Pain; Foot; Bilateral; Additional info: Bilateral leg foot pain TECHNIQUE: Imaging protocol: Bilateral Limited bilateral noninvasive physiologic studies of lower extremity arteries. Waveforms were obtained and evaluated. Images were documented and archived. Exam is limited. COMPARISON: US ROR venous duplex LE RT 01/08/2019 3:02 PM FINDINGS: Right Ankle-Brachial Index: 1.0. Left Ankle-Brachial Index: 1.0. US/CV ankle brachial index [id number] IMPRESSION: No evidence of stenosis or occlusion in the lower extremity.
== END 2025-03-05 09:20 | disposition home or self-care (01) ==
LOC: RAD 09:20
PROVIDERS: PCP Nurse Practitioner Family; Visit Provider Nurse Practitioner Family
DX: M79.671 Pain in right foot (principal); M79.672 Pain in left foot; M79.604 Pain in right leg; M79.605 Pain in left leg
CPT/HCPCS: 93922